=== PATIENT | male | born 1970 | race Hispanic/Latino ===

== ENCOUNTER 2020-11-30 02:00 | Inpatient (IN) | payer BC, SELFPAY ==
[2020-11-30] MEDS ORDERED: Morphine 4 MG/ML VIAL ONE (02:26)
[2020-11-30 02:43] LABS: #Monocytes 0.6 10x3/uL (0.0-1.1); #Neutrophils 9.4 10x3/uL (1.5-8.4); %Basophils 0.3 % (0.0-2.0); %Lymphocytes 8.7 % (18.0-47.0); %Monocytes 5.2 % (0.0-10.0); %Neutrophils 85.3 % (40.0-75.0); Hemoglobin 14.3 g/dL (13.5-17.5); Mean Corpuscular HGB CONC 33.3 g/dL (32.0-36.0); Mean Corpuscular Hemoglobin 28.6 pg (27.0-33.0); Mean Corpuscular Volume 85.8 fl (81.2-95.1); Mean Platelet Volume 10.7 fl (7.4-10.4); Platelet Count 223 10x3/uL (150-450); RBC Distribution Width 12.1 % (11.5-14.5)
[2020-11-30 03:08] LABS: CKMB 1.3 ng/mL (0-6.6)
[2020-11-30 03:35] LABS: SARS-CoV-2 NAA Rapid Test DETECTED (NotDetected)
[2020-11-30] MEDS ORDERED: Ondansetron PF 4 MG/2 ML Vial ONE (04:53)
[2020-11-30 05:45] LABS: Lactic Acid 2.6 mmol/L (0.5-2.2)
[2020-11-30] MEDS ORDERED: Ventolin HFA Inhaler 60 PUFF INHALER ONE (08:50)
[2020-11-30 13:10] LABS: Troponin I 0.172 ng/mL (< 0.028)
[2020-11-30 13:32] LABS: ALT (SGPT) 37 U/L (8-55); AST (SGOT) 66 U/L (5-34); Albumin 3.5 g/dL (3.5-5.0); Alkaline Phosphatase 60 U/L (40-110); Anion Gap 18 mmol/L (10-20); BUN (Urea Nitrogen) 32 mg/dL (8.4-25.7); Bilirubin, Total 0.8 mg/dL (0.2-1.2); CRP (Inflammatory) 17.95 mg/dL (= or < 0.5); Calc. Creatinine Clearance 0 mL/min (70-130); Calcium 8.6 mg/dL (7.8-10.44); Carbon Dioxide 23 mmol/L (22-29); Chloride 98 mmol/L (98-107); Globulin 4.1 g/dL (2.4-3.5); Glucose 144 mg/dL (70-105); Lactic Acid 1.9 mmol/L (0.5-2.2); Potassium 4.8 mmol/L (3.5-5.1); Protein, Total 7.6 g/dL (6.0-8.3); Sodium 134 mmol/L (136-145)
[2020-11-30 13:41] LABS: Actual Bicarbonate (HCO3a) 21.2 mEq/L (22-28); Base Excess (BEa) -3.4 mEq/L (-2.0 to +3.0); CO2 Tension 37.4 mmHg (35.0-45.0); Calcium, Ionized (arterial) 1.17 mmol/L (1.12-1.30); Carboxyhemoglobin (COHb) 0.4 gm% (0.0-3.0); Hemoglobin (Hb) 15.5 g/dL (14.0-18.0); O2 Tension (PaO2), arterial 49.3 mmHg (80.0-100.0); Potassium - ABG Lab 4.7 mmol/L (3.70-5.30); Puncture Site LRA; pH, Arterial 7.37 (7.35-7.45)
[2020-11-30] MEDS ORDERED: Thiamine 100 MG TAB PO SCH (15:30)
[2020-11-30] MEDS ORDERED: Zinc Sulfate 220 MG CAP PO SCH (15:30)
[2020-11-30] MEDS ORDERED: Famotidine/PF 20 mg/2ml Vial SLOW IVP SCH (15:30)
[2020-11-30] MEDS ORDERED: Cholecalciferol (Vitamin D3) 400 UNITS TAB PO SCH (15:30)
[2020-11-30] MEDS ORDERED: Dexamethasone 4 mg/ml Vial SLOW IVP SCH (15:30)
[2020-11-30] MEDS ORDERED: Ascorbic Acid 500 mg Chewable Tablet PO SCH (15:30)
[2020-11-30] MEDS ORDERED: FLU VACC QS2020-21(6MOS UP)/PF 60 MCG/0.5 ML SYRINGE IM ONE (15:45)
[2020-11-30] MEDS ORDERED: Azithromycin 500 MG in Sodium Chloride 0.9% 250 ML 250 ML IVPB SCH (16:00)
[2020-11-30 16:01] LABS: Actual Bicarbonate (HCO3a) 21.4 mEq/L (22-28); Base Excess (BEa) -3.1 mEq/L (-2.0 to +3.0); CO2 Tension 36.7 mmHg (35.0-45.0); Carboxyhemoglobin (COHb) 0.5 gm% (0.0-3.0); Hemoglobin (Hb) 14.6 g/dL (14.0-18.0); O2 Tension (PaO2), arterial 74.2 mmHg (80.0-100.0); Potassium - ABG Lab 4.6 mmol/L (3.70-5.30); Puncture Site RRA; pH, Arterial 7.38 (7.35-7.45)
[2020-11-30] MEDS: cefTRIAXone\\ROCEPHIN 1 GM in Sodium Chloride 0.9% 100 ML IVPB SCH (16:36)
[2020-11-30] MEDS: Enoxaparin Sodium 120 MG/0.8 ML SYRINGE SC SCH (16:36)
[2020-11-30 16:37] LABS: Lactic Acid 1.7 mmol/L (0.5-2.2)
[2020-11-30] MEDS: Azithromycin 500 MG in Sodium Chloride 0.9% 250 ML 250 ML IVPB SCH (18:35)
[2020-11-30] MEDS: Mometasone/Formoterol 200/5 60 PUFF INH SCH (19:40)
[2020-11-30 20:19] LABS: Lactic Acid 1.6 mmol/L (0.5-2.2)
[2020-11-30 20:29] LABS: Troponin I 0.124 ng/mL (< 0.028)
[2020-11-30] MEDS: Famotidine/PF 20 mg/2ml Vial SLOW IVP SCH (21:45)
[2020-11-30] MEDS ORDERED: Acetaminophen 325 MG TAB ONE (22:39)
[2020-11-30] MEDS: Acetaminophen 325 MG TAB PO PRN (22:49)
[2020-12-01 00:37] LABS: Troponin I 0.106 ng/mL (< 0.028)
[2020-12-01 02:43] LABS: Bilirubin Neg (Negative); Blood, Urine 10 (Negative); Clarity Cloudy (Clear); Glucose, Urine (Dipstick) Normal (Negative); Ketone, Urine Negative (Negative); Leukocyte 25 (Negative); Nitrite Negative (Negative); Protein, Urine (Dipstick) 100 mg/dl (Neg-Trace); Specific Gravity, Urine 1.025 (1.002-1.036)
[2020-12-01 02:56] LABS: Bacteria/HPF 2+ HPF (None Seen); RBC/HPF 0-3 HPF (0-3); Renal Epithelial 0-3 HPF (None Seen); Squamous Epithelial 0-3 HPF (0-3); WBC/HPF 0-3 HPF (0-3)
[2020-12-01] MEDS: Enoxaparin Sodium 120 MG/0.8 ML SYRINGE SC SCH (04:57)
[2020-12-01 07:08] LABS: #Monocytes 0.7 10x3/uL (0.0-1.1); #Neutrophils 16.4 10x3/uL (1.5-8.4); %Basophils 0.2 % (0.0-2.0); %Lymphocytes 5.4 % (18.0-47.0); %Monocytes 3.7 % (0.0-10.0); %Neutrophils 89.8 % (40.0-75.0); Hemoglobin 13.1 g/dL (13.5-17.5); Mean Corpuscular HGB CONC 33.8 g/dL (32.0-36.0); Mean Corpuscular Hemoglobin 28.9 pg (27.0-33.0); Mean Corpuscular Volume 85.7 fl (81.2-95.1); Mean Platelet Volume 10.9 fl (7.4-10.4); Platelet Count 233 10x3/uL (150-450); RBC Distribution Width 12.1 % (11.5-14.5); Red Blood Cell (RBC) Count 4.53 10x6/uL (4.32-5.72); White Blood Cell (WBC) Count 18.3 10x3/uL (3.5-10.5)
[2020-12-01 07:22] LABS: Troponin I 0.073 ng/mL (< 0.028)
[2020-12-01] MEDS: Cholecalciferol (Vitamin D3) 400 UNITS TAB PO SCH ×2 (08:43→10:28)
[2020-12-01] MEDS: Famotidine/PF 20 mg/2ml Vial SLOW IVP SCH ×2 (08:43→21:50)
[2020-12-01] MEDS: Ascorbic Acid 500 mg Chewable Tablet PO SCH ×2 (08:43→10:27)
[2020-12-01] MEDS: Zinc Sulfate 220 MG CAP PO SCH ×2 (08:44→10:29)
[2020-12-01] MEDS: Thiamine 100 MG TAB PO SCH ×2 (08:44→10:28)
[2020-12-01] MEDS: Mometasone/Formoterol 200/5 60 PUFF INH SCH ×2 (08:52→19:27)
[2020-12-01] MEDS ORDERED: Dexamethasone 6 MG in Sodium Chloride 0.9% 50 ML IVPB SCH (12:00)
[2020-12-01] MEDS: Dexamethasone 6 MG, Admixture Fee 1 EACH in Sodium Chloride 0.9% 50 ML IVPB SCH (12:42)
[2020-12-01] MEDS: cefTRIAXone\\ROCEPHIN 1 GM in Sodium Chloride 0.9% 100 ML IVPB SCH (16:23)
[2020-12-01] MEDS: Azithromycin 500 MG in Sodium Chloride 0.9% 250 ML 250 ML IVPB SCH (18:00)
[2020-12-01] MEDS: Acetaminophen 325 MG TAB PO PRN (21:48)
[2020-12-02] MEDS: Enoxaparin Sodium 120 MG/0.8 ML SYRINGE SC SCH (08:52)
[2020-12-02] MEDS: Thiamine 100 MG TAB PO SCH (08:52)
[2020-12-02] MEDS: Cholecalciferol (Vitamin D3) 400 UNITS TAB PO SCH (08:52)
[2020-12-02] MEDS: Zinc Sulfate 220 MG CAP PO SCH (08:52)
[2020-12-02] MEDS: Famotidine/PF 20 mg/2ml Vial SLOW IVP SCH (08:52)
[2020-12-02] MEDS: Ascorbic Acid 500 mg Chewable Tablet PO SCH (08:52)
[2020-12-02] MEDS: Mometasone/Formoterol 200/5 60 PUFF INH SCH ×2 (09:39→21:15)
[2020-12-02] MEDS ORDERED: Ventolin HFA Inhaler 60 PUFF INHALER INH PRN (10:14)
[2020-12-02] MEDS: Dexamethasone 6 MG, Admixture Fee 1 EACH in Sodium Chloride 0.9% 50 ML IVPB SCH (12:33)
[2020-12-02] MEDS: cefTRIAXone\\ROCEPHIN 1 GM in Sodium Chloride 0.9% 100 ML IVPB SCH (15:04)
[2020-12-02] MEDS: Azithromycin 500 MG in Sodium Chloride 0.9% 250 ML 250 ML IVPB SCH (16:26)
[2020-12-02] MEDS: Acetaminophen 325 MG TAB PO PRN (21:27)
[2020-12-03] MEDS: Famotidine/PF 20 mg/2ml Vial SLOW IVP SCH ×3 (02:11→22:02)
[2020-12-03 05:28] LABS: Hemoglobin 13.6 g/dL (13.5-17.5); Mean Corpuscular HGB CONC 32.9 g/dL (32.0-36.0); Mean Corpuscular Hemoglobin 28.2 pg (27.0-33.0); Mean Corpuscular Volume 85.9 fl (81.2-95.1); Mean Platelet Volume 11.1 fl (7.4-10.4); Platelet Count 248 10x3/uL (150-450); RBC Distribution Width 12.1 % (11.5-14.5); Red Blood Cell (RBC) Count 4.82 10x6/uL (4.32-5.72); White Blood Cell (WBC) Count 9.9 10x3/uL (3.5-10.5)
[2020-12-03 05:29] LABS: Anion Gap 15 mmol/L (10-20); BUN (Urea Nitrogen) 57 mg/dL (8.4-25.7); CRP (Inflammatory) 3.46 mg/dL (= or < 0.5); Calc. Creatinine Clearance 134 mL/min (70-130); Calcium 8.5 mg/dL (7.8-10.44); Carbon Dioxide 25 mmol/L (22-29); Chloride 107 mmol/L (98-107); Glucose 120 mg/dL (70-105); Potassium 5.4 mmol/L (3.5-5.1); Sodium 142 mmol/L (136-145)
[2020-12-03 06:49] LABS: MDiff Complete? YES
[2020-12-03 06:54] LABS: Band 13 % (5-11); Lymphocytes 3 % (21-51); Metamyelocyte 1 % (0-0); Monocytes 9 % (0-10); Neutrophil 74 % (42-75)
[2020-12-03 06:56] LABS: Platelet Morphology Comment Appears Adequate; RBC Morphology Normal
[2020-12-03] MEDS ORDERED: Calcium Gluconate 4.6 MEQ in Sodium Chloride 0.9% 100 ML IVPB SCH (07:15)
[2020-12-03] MEDS: Mometasone/Formoterol 200/5 60 PUFF INH SCH ×2 (07:39→21:39)
[2020-12-03] MEDS: Hydrochlorothiazide 25 MG TAB PO SCH (09:13)
[2020-12-03] MEDS: Enoxaparin Sodium 120 MG/0.8 ML SYRINGE SC SCH ×2 (09:13→22:02)
[2020-12-03] MEDS: Cholecalciferol (Vitamin D3) 400 UNITS TAB PO SCH (09:14)
[2020-12-03] MEDS: Zinc Sulfate 220 MG CAP PO SCH (09:14)
[2020-12-03] MEDS: Thiamine 100 MG TAB PO SCH (09:14)
[2020-12-03] MEDS: Ascorbic Acid 500 mg Chewable Tablet PO SCH (09:14)
[2020-12-03] MEDS: Dexamethasone 6 MG, Admixture Fee 1 EACH in Sodium Chloride 0.9% 50 ML IVPB SCH (14:07)
[2020-12-03] MEDS: cefTRIAXone\\ROCEPHIN 1 GM in Sodium Chloride 0.9% 100 ML IVPB SCH (15:53)
[2020-12-03] MEDS: Azithromycin 500 MG in Sodium Chloride 0.9% 250 ML 250 ML IVPB SCH (17:00)
[2020-12-04 04:56] LABS: #Eosinphils 0.1 10x3/uL (0.0-0.5); #Monocytes 0.5 10x3/uL (0.0-1.1); #Neutrophils 10.3 10x3/uL (1.5-8.4); %Basophils 0.2 % (0.0-2.0); %Eosinophils 0.7 % (0.0-6.0); %Lymphocytes 8.2 % (18.0-47.0); %Monocytes 3.8 % (0.0-10.0); %Neutrophils 85.8 % (40.0-75.0); Hemoglobin 13.7 g/dL (13.5-17.5); Mean Corpuscular Hemoglobin 28.4 pg (27.0-33.0); Mean Corpuscular Volume 86.1 fl (81.2-95.1); Platelet Count 214 10x3/uL (150-450); RBC Distribution Width 11.9 % (11.5-14.5); Red Blood Cell (RBC) Count 4.82 10x6/uL (4.32-5.72)
[2020-12-04 05:07] LABS: Anion Gap 16 mmol/L (10-20); BUN (Urea Nitrogen) 42 mg/dL (8.4-25.7); CRP (Inflammatory) 3.33 mg/dL (= or < 0.5); Calc. Creatinine Clearance 165 mL/min (70-130); Calcium 8.6 mg/dL (7.8-10.44); Carbon Dioxide 27 mmol/L (22-29); Chloride 104 mmol/L (98-107); Glucose 94 mg/dL (70-105); Potassium 4.9 mmol/L (3.5-5.1); Sodium 142 mmol/L (136-145)
[2020-12-04] MEDS: Mometasone/Formoterol 200/5 60 PUFF INH SCH ×2 (08:21→19:57)
[2020-12-04] MEDS: Hydrochlorothiazide 25 MG TAB PO SCH (12:43)
[2020-12-04] MEDS: Zinc Sulfate 220 MG CAP PO SCH (12:43)
[2020-12-04] MEDS: Ascorbic Acid 500 mg Chewable Tablet PO SCH (12:43)
[2020-12-04] MEDS: Cholecalciferol (Vitamin D3) 400 UNITS TAB PO SCH (12:43)
[2020-12-04] MEDS ORDERED: Sodium Chloride 0.9% 50 ML ONE (12:45)
[2020-12-04] MEDS ORDERED: Dexamethasone 20 MG/5 ML VIAL ONE (12:45)
[2020-12-04] MEDS: Thiamine 100 MG TAB PO SCH (12:47)
[2020-12-04] MEDS: Enoxaparin Sodium 120 MG/0.8 ML SYRINGE SC SCH ×2 (12:47→21:34)
[2020-12-04] MEDS: Dexamethasone 6 MG, Admixture Fee 1 EACH in Sodium Chloride 0.9% 50 ML IVPB SCH (12:47)
[2020-12-04] MEDS: Famotidine/PF 20 mg/2ml Vial SLOW IVP SCH ×2 (13:19→21:35)
[2020-12-04] MEDS: cefTRIAXone\\ROCEPHIN 1 GM in Sodium Chloride 0.9% 100 ML IVPB SCH (16:36)
[2020-12-04] MEDS: Azithromycin 500 MG in Sodium Chloride 0.9% 250 ML 250 ML IVPB SCH (18:40)
[2020-12-05 04:37] LABS: #Eosinphils 0.4 10x3/uL (0.0-0.5); #Monocytes 0.3 10x3/uL (0.0-1.1); #Neutrophils 9.4 10x3/uL (1.5-8.4); %Basophils 0.2 % (0.0-2.0); %Eosinophils 3.3 % (0.0-6.0); %Lymphocytes 6.7 % (18.0-47.0); %Monocytes 3.1 % (0.0-10.0); %Neutrophils 85.4 % (40.0-75.0); Hemoglobin 14.6 g/dL (13.5-17.5); Mean Corpuscular HGB CONC 33.1 g/dL (32.0-36.0); Mean Corpuscular Hemoglobin 28.4 pg (27.0-33.0); Mean Corpuscular Volume 85.8 fl (81.2-95.1); Mean Platelet Volume 10.6 fl (7.4-10.4); Platelet Count 194 10x3/uL (150-450); RBC Distribution Width 11.9 % (11.5-14.5); Red Blood Cell (RBC) Count 5.14 10x6/uL (4.32-5.72); White Blood Cell (WBC) Count 10.9 10x3/uL (3.5-10.5)
[2020-12-05 05:01] LABS: Anion Gap 16 mmol/L (10-20); BUN (Urea Nitrogen) 35 mg/dL (8.4-25.7); Calc. Creatinine Clearance 185 mL/min (70-130); Calcium 8.9 mg/dL (7.8-10.44); Carbon Dioxide 28 mmol/L (22-29); Chloride 103 mmol/L (98-107); Glucose 81 mg/dL (70-105); Sodium 142 mmol/L (136-145)
[2020-12-05] MEDS: Mometasone/Formoterol 200/5 60 PUFF INH SCH ×2 (07:54→20:20)
[2020-12-05] MEDS: Zinc Sulfate 220 MG CAP PO SCH (09:30)
[2020-12-05] MEDS: Thiamine 100 MG TAB PO SCH (09:30)
[2020-12-05] MEDS: Dexamethasone 6 MG, Admixture Fee 1 EACH in Sodium Chloride 0.9% 50 ML IVPB SCH (09:30)
[2020-12-05] MEDS: Enoxaparin Sodium 120 MG/0.8 ML SYRINGE SC SCH ×2 (09:30→22:28)
[2020-12-05] MEDS: Hydrochlorothiazide 25 MG TAB PO SCH ×2 (09:30→22:28)
[2020-12-05] MEDS: Ascorbic Acid 500 mg Chewable Tablet PO SCH (09:30)
[2020-12-05] MEDS: Famotidine/PF 20 mg/2ml Vial SLOW IVP SCH ×2 (09:30→22:28)
[2020-12-05] MEDS: Cholecalciferol (Vitamin D3) 400 UNITS TAB PO SCH (09:30)
[2020-12-05] MEDS: cefTRIAXone\\ROCEPHIN 1 GM in Sodium Chloride 0.9% 100 ML IVPB SCH (16:10)
[2020-12-05] MEDS: Azithromycin 500 MG in Sodium Chloride 0.9% 250 ML 250 ML IVPB SCH (18:16)
[2020-12-06 05:28] LABS: #Eosinphils 0.7 10x3/uL (0.0-0.5); #Monocytes 0.3 10x3/uL (0.0-1.1); %Basophils 0.3 % (0.0-2.0); %Eosinophils 5.8 % (0.0-6.0); %Lymphocytes 4.6 % (18.0-47.0); %Monocytes 2.9 % (0.0-10.0); %Neutrophils 84.5 % (40.0-75.0); Hemoglobin 14.5 g/dL (13.5-17.5); Mean Corpuscular HGB CONC 33.2 g/dL (32.0-36.0); Mean Corpuscular Hemoglobin 28.3 pg (27.0-33.0); Mean Corpuscular Volume 85.2 fl (81.2-95.1); Mean Platelet Volume 11.5 fl (7.4-10.4); Platelet Count 209 10x3/uL (150-450); RBC Distribution Width 11.9 % (11.5-14.5); Red Blood Cell (RBC) Count 5.13 10x6/uL (4.32-5.72); White Blood Cell (WBC) Count 11.8 10x3/uL (3.5-10.5)
[2020-12-06 05:39] LABS: Anion Gap 15 mmol/L (10-20); BUN (Urea Nitrogen) 31 mg/dL (8.4-25.7); Calc. Creatinine Clearance 196 mL/min (70-130); Calcium 8.7 mg/dL (7.8-10.44); Carbon Dioxide 24 mmol/L (22-29); Chloride 103 mmol/L (98-107); Glucose 104 mg/dL (70-105); Potassium 4.2 mmol/L (3.5-5.1); Sodium 138 mmol/L (136-145)
[2020-12-06] MEDS: Mometasone/Formoterol 200/5 60 PUFF INH SCH ×2 (08:43→18:40)
[2020-12-06] MEDS: Ascorbic Acid 500 mg Chewable Tablet PO SCH (08:59)
[2020-12-06] MEDS: Famotidine/PF 20 mg/2ml Vial SLOW IVP SCH ×2 (08:59→19:53)
[2020-12-06] MEDS: Cholecalciferol (Vitamin D3) 400 UNITS TAB PO SCH (09:00)
[2020-12-06] MEDS: Thiamine 100 MG TAB PO SCH (09:00)
[2020-12-06] MEDS: Zinc Sulfate 220 MG CAP PO SCH (09:01)
[2020-12-06] MEDS: Enoxaparin Sodium 120 MG/0.8 ML SYRINGE SC SCH ×2 (09:01→19:53)
[2020-12-06] MEDS: Acetaminophen 325 MG TAB PO PRN (10:43)
[2020-12-06] MEDS ORDERED: Sodium Chloride 0.9% 50 ML ONE (11:47)
[2020-12-06] MEDS ORDERED: Dexamethasone 20 MG/5 ML VIAL ONE (11:47)
[2020-12-06] MEDS: Dexamethasone 6 MG, Admixture Fee 1 EACH in Sodium Chloride 0.9% 50 ML IVPB SCH (11:52)
[2020-12-06] MEDS: cefTRIAXone\\ROCEPHIN 1 GM in Sodium Chloride 0.9% 100 ML IVPB SCH (15:39)
[2020-12-06] MEDS ORDERED: Furosemide 100 MG/10 ML VIAL SLOW IVP SCH (15:45)
[2020-12-06] MEDS: Azithromycin 500 MG in Sodium Chloride 0.9% 250 ML 250 ML IVPB SCH (17:27)
[2020-12-07 04:24] LABS: #Eosinphils 0.2 10x3/uL (0.0-0.5); #Monocytes 0.5 10x3/uL (0.0-1.1); #Neutrophils 12.1 10x3/uL (1.5-8.4); %Basophils 0.1 % (0.0-2.0); %Eosinophils 1.3 % (0.0-6.0); %Lymphocytes 4.6 % (18.0-47.0); %Monocytes 3.5 % (0.0-10.0); %Neutrophils 89.5 % (40.0-75.0); Hemoglobin 14.2 g/dL (13.5-17.5); Mean Corpuscular HGB CONC 34.1 g/dL (32.0-36.0); Mean Corpuscular Volume 85.1 fl (81.2-95.1); Mean Platelet Volume 11.7 fl (7.4-10.4); Platelet Count 209 10x3/uL (150-450); RBC Distribution Width 11.7 % (11.5-14.5); Red Blood Cell (RBC) Count 4.89 10x6/uL (4.32-5.72); White Blood Cell (WBC) Count 13.5 10x3/uL (3.5-10.5)
[2020-12-07 04:46] LABS: Anion Gap 14 mmol/L (10-20); BUN (Urea Nitrogen) 36 mg/dL (8.4-25.7); Calc. Creatinine Clearance 183 mL/min (70-130); Calcium 8.9 mg/dL (7.8-10.44); Carbon Dioxide 25 mmol/L (22-29); Chloride 102 mmol/L (98-107); Glucose 109 mg/dL (70-105); Potassium 4.3 mmol/L (3.5-5.1); Sodium 137 mmol/L (136-145)
[2020-12-07] MEDS: Mometasone/Formoterol 200/5 60 PUFF INH SCH ×2 (08:20→19:36)
[2020-12-07] MEDS: Hydrochlorothiazide 25 MG TAB PO SCH (08:21)
[2020-12-07] MEDS: Ascorbic Acid 500 mg Chewable Tablet PO SCH (08:21)
[2020-12-07] MEDS: Thiamine 100 MG TAB PO SCH (08:21)
[2020-12-07] MEDS: Zinc Sulfate 220 MG CAP PO SCH (08:21)
[2020-12-07] MEDS: Cholecalciferol (Vitamin D3) 400 UNITS TAB PO SCH (08:21)
[2020-12-07] MEDS: Enoxaparin Sodium 120 MG/0.8 ML SYRINGE SC SCH ×2 (08:21→23:01)
[2020-12-07] MEDS: Famotidine/PF 20 mg/2ml Vial SLOW IVP SCH ×2 (08:22→23:02)
[2020-12-07] MEDS: Dexamethasone 6 MG, Admixture Fee 1 EACH in Sodium Chloride 0.9% 50 ML IVPB SCH (12:41)
[2020-12-07] MEDS ORDERED: Azithromycin 500 MG VIAL ONE (17:24)
[2020-12-07] MEDS: cefTRIAXone\\ROCEPHIN 1 GM in Sodium Chloride 0.9% 100 ML IVPB SCH (17:38)
[2020-12-07] MEDS: Azithromycin 500 MG in Sodium Chloride 0.9% 250 ML 250 ML IVPB SCH (19:16)
[2020-12-07] MEDS: Acetaminophen 325 MG TAB PO PRN (23:01)
[2020-12-08] MEDS: Mometasone/Formoterol 200/5 60 PUFF INH SCH ×2 (06:55→19:41)
[2020-12-08] MEDS: Ascorbic Acid 500 mg Chewable Tablet PO SCH (08:21)
[2020-12-08] MEDS: Thiamine 100 MG TAB PO SCH (08:21)
[2020-12-08] MEDS: Zinc Sulfate 220 MG CAP PO SCH (08:21)
[2020-12-08] MEDS: Cholecalciferol (Vitamin D3) 400 UNITS TAB PO SCH (08:21)
[2020-12-08] MEDS: Enoxaparin Sodium 120 MG/0.8 ML SYRINGE SC SCH ×2 (08:22→20:16)
[2020-12-08] MEDS: Famotidine/PF 20 mg/2ml Vial SLOW IVP SCH ×2 (08:22→20:16)
[2020-12-08] MEDS ORDERED: Dexamethasone 20 MG/5 ML VIAL ONE (12:51)
[2020-12-08] MEDS ORDERED: Sodium Chloride 0.9% 50 ML ONE (12:52)
[2020-12-08] MEDS: Hydrochlorothiazide 25 MG TAB PO SCH (12:59)
[2020-12-08] MEDS: Dexamethasone 6 MG, Admixture Fee 1 EACH in Sodium Chloride 0.9% 50 ML IVPB SCH (17:19)
[2020-12-08] MEDS: cefTRIAXone\\ROCEPHIN 1 GM in Sodium Chloride 0.9% 100 ML IVPB SCH (17:44)
[2020-12-08] MEDS: Acetaminophen 325 MG TAB PO PRN (20:16)
[2020-12-09] MEDS: Mometasone/Formoterol 200/5 60 PUFF INH SCH ×2 (07:34→19:20)
[2020-12-09 07:37] LABS: Hemoglobin 14.1 g/dL (13.5-17.5); Mean Corpuscular HGB CONC 33.7 g/dL (32.0-36.0); Mean Corpuscular Hemoglobin 29.1 pg (27.0-33.0); Mean Corpuscular Volume 86.2 fl (81.2-95.1); Mean Platelet Volume 11.4 fl (7.4-10.4); Platelet Count 316 10x3/uL (150-450); RBC Distribution Width 11.8 % (11.5-14.5); Red Blood Cell (RBC) Count 4.85 10x6/uL (4.32-5.72); White Blood Cell (WBC) Count 13.1 10x3/uL (3.5-10.5)
[2020-12-09 07:55] LABS: Anion Gap 16 mmol/L (10-20); BUN (Urea Nitrogen) 31 mg/dL (8.4-25.7); Calc. Creatinine Clearance 177 mL/min (70-130); Carbon Dioxide 24 mmol/L (22-29); Chloride 103 mmol/L (98-107); Glucose 74 mg/dL (70-105); Potassium 4.4 mmol/L (3.5-5.1); Sodium 139 mmol/L (136-145)
[2020-12-09] MEDS: Enoxaparin Sodium 120 MG/0.8 ML SYRINGE SC SCH ×2 (09:17→20:51)
[2020-12-09] MEDS: Famotidine/PF 20 mg/2ml Vial SLOW IVP SCH ×2 (09:18→20:51)
[2020-12-09] MEDS: Zinc Sulfate 220 MG CAP PO SCH (09:19)
[2020-12-09] MEDS: Cholecalciferol (Vitamin D3) 400 UNITS TAB PO SCH (09:19)
[2020-12-09] MEDS: Ascorbic Acid 500 mg Chewable Tablet PO SCH (09:19)
[2020-12-09] MEDS: Thiamine 100 MG TAB PO SCH (09:19)
[2020-12-09] MEDS: Hydrochlorothiazide 25 MG TAB PO SCH (09:20)
[2020-12-09] MEDS: Dexamethasone 6 MG, Admixture Fee 1 EACH in Sodium Chloride 0.9% 50 ML IVPB SCH (11:52)
[2020-12-09] MEDS: cefTRIAXone\\ROCEPHIN 1 GM in Sodium Chloride 0.9% 100 ML IVPB SCH (16:13)
[2020-12-09] MEDS: Acetaminophen 325 MG TAB PO PRN ×2 (16:58→20:51)
[2020-12-09] MEDS: Azithromycin 500 MG in Sodium Chloride 0.9% 250 ML 250 ML IVPB SCH ×2 (17:42→18:00)
[2020-12-10] MEDS: Mometasone/Formoterol 200/5 60 PUFF INH SCH ×2 (07:29→19:33)
[2020-12-10] MEDS ORDERED: Furosemide 100 MG/10 ML VIAL SLOW IVP SCH (09:15)
[2020-12-10] MEDS: Zinc Sulfate 220 MG CAP PO SCH (10:03)
[2020-12-10] MEDS: Enoxaparin Sodium 120 MG/0.8 ML SYRINGE SC SCH ×2 (10:03→23:08)
[2020-12-10] MEDS: Thiamine 100 MG TAB PO SCH (10:04)
[2020-12-10] MEDS: Ascorbic Acid 500 mg Chewable Tablet PO SCH (10:04)
[2020-12-10] MEDS: Famotidine/PF 20 mg/2ml Vial SLOW IVP SCH ×2 (10:04→23:08)
[2020-12-10] MEDS: Cholecalciferol (Vitamin D3) 400 UNITS TAB PO SCH (10:04)
[2020-12-10] MEDS: Lorazepam 2 MG/ML VIAL SLOW IVP PRN (11:20)
[2020-12-10] MEDS ORDERED: Sodium Chloride 0.9% 50 ML ONE (12:21)
[2020-12-10] MEDS ORDERED: Dexamethasone 20 MG/5 ML VIAL ONE (12:21)
[2020-12-10] MEDS: Dexamethasone 6 MG, Admixture Fee 1 EACH in Sodium Chloride 0.9% 50 ML IVPB SCH (12:27)
[2020-12-10] MEDS: Furosemide 40 MG/4 ML VIAL SLOW IVP SCH (14:29)
[2020-12-10] MEDS: cefTRIAXone\\ROCEPHIN 1 GM in Sodium Chloride 0.9% 100 ML IVPB SCH (15:20)
[2020-12-10] MEDS: Azithromycin 500 MG in Sodium Chloride 0.9% 250 ML 250 ML IVPB SCH (23:08)
[2020-12-11] MEDS: Acetaminophen 325 MG TAB PO PRN ×2 (01:16→17:26)
[2020-12-11 03:43] LABS: #Monocytes 0.4 10x3/uL (0.0-1.1); #Neutrophils 15.1 10x3/uL (1.5-8.4); %Basophils 0.2 % (0.0-2.0); %Eosinophils 0.2 % (0.0-6.0); %Lymphocytes 4.2 % (18.0-47.0); %Monocytes 2.6 % (0.0-10.0); %Neutrophils 92.3 % (40.0-75.0); Hemoglobin 14.4 g/dL (13.5-17.5); Mean Corpuscular HGB CONC 33.3 g/dL (32.0-36.0); Mean Corpuscular Hemoglobin 28.4 pg (27.0-33.0); Mean Corpuscular Volume 85.4 fl (81.2-95.1); Mean Platelet Volume 11.3 fl (7.4-10.4); Platelet Count 350 10x3/uL (150-450); RBC Distribution Width 11.9 % (11.5-14.5); Red Blood Cell (RBC) Count 5.07 10x6/uL (4.32-5.72); White Blood Cell (WBC) Count 16.3 10x3/uL (3.5-10.5)
[2020-12-11 03:54] LABS: Anion Gap 16 mmol/L (10-20); BUN (Urea Nitrogen) 32 mg/dL (8.4-25.7); CRP (Inflammatory) 13.56 mg/dL (= or < 0.5); Calc. Creatinine Clearance 181 mL/min (70-130); Calcium 9.1 mg/dL (7.8-10.44); Carbon Dioxide 25 mmol/L (22-29); Chloride 103 mmol/L (98-107); Glucose 103 mg/dL (70-105); Magnesium 2.3 mg/dL (1.6-2.6); Potassium 4.8 mmol/L (3.5-5.1); Sodium 139 mmol/L (136-145)
[2020-12-11] MEDS: Mometasone/Formoterol 200/5 60 PUFF INH SCH ×2 (08:30→18:30)
[2020-12-11] MEDS: Famotidine/PF 20 mg/2ml Vial SLOW IVP SCH ×2 (08:41→21:54)
[2020-12-11] MEDS: Zinc Sulfate 220 MG CAP PO SCH (08:41)
[2020-12-11] MEDS: Cholecalciferol (Vitamin D3) 400 UNITS TAB PO SCH (08:41)
[2020-12-11] MEDS: Ascorbic Acid 500 mg Chewable Tablet PO SCH (08:41)
[2020-12-11] MEDS: Thiamine 100 MG TAB PO SCH (08:41)
[2020-12-11] MEDS: Enoxaparin Sodium 120 MG/0.8 ML SYRINGE SC SCH ×2 (08:41→21:53)
[2020-12-11] MEDS ORDERED: Sodium Chloride 0.9% 50 ML ONE (11:30)
[2020-12-11] MEDS: Dexamethasone 20 MG/5 ML VIAL ONE ×2 (11:34→11:41)
[2020-12-11] MEDS: Dexamethasone 6 MG, Admixture Fee 1 EACH in Sodium Chloride 0.9% 50 ML IVPB SCH (11:41)
[2020-12-11] MEDS: Furosemide 40 MG/4 ML VIAL SLOW IVP SCH ×2 (13:54→19:37)
[2020-12-11] MEDS: Lorazepam 2 MG/ML VIAL SLOW IVP PRN (22:41)
[2020-12-12] MEDS ORDERED: Propofol 1,000 MG/100 ML VIAL IV ONE (00:20)
[2020-12-12 00:39] LABS: Base Excess (BEa) -2.9 mEq/L (-2.0 to +3.0); Calcium, Ionized (arterial) 1.26 mmol/L (1.12-1.30); Carboxyhemoglobin (COHb) 0.7 gm% (0.0-3.0); Hemoglobin (Hb) 16.3 g/dL (14.0-18.0); O2 Tension (PaO2), arterial 59.6 mmHg (80.0-100.0); Potassium - ABG Lab 3.9 mmol/L (3.70-5.30); Puncture Site RBA; pH, Arterial 7.24 (7.35-7.45)
[2020-12-12] MEDS ORDERED: Labetalol HCl 100 MG/20 ML VIAL ONE (01:02)
[2020-12-12] MEDS ORDERED: Rocuronium Bromide 10 MG/ML (10ML VIAL) ONE (01:11)
[2020-12-12] MEDS ORDERED: Fentanyl CADD 100 ML IVPB SCH (01:45)
[2020-12-12] MEDS ORDERED: Fentanyl CADD 100 ML ONE (01:52)
[2020-12-12] MEDS ORDERED: Propofol BOLUS 1,000 MG/100 ML VIAL IV PRN ×2 (02:00→08:15)
[2020-12-12] MEDS ORDERED: Rocuronium Bromide 10 MG/ML (10ML VIAL) IVP SCH (02:00)
[2020-12-12] MEDS: Propofol 1,000 MG/100 ML VIAL IV PRN ×7 (02:15→23:00)
[2020-12-12 03:34] LABS: Actual Bicarbonate (HCO3a) 28.1 mEq/L (22-28); Base Excess (BEa) -0.3 mEq/L (-2.0 to +3.0); CO2 Tension 61.7 mmHg (35.0-45.0); Calcium, Ionized (arterial) 1.24 mmol/L (1.12-1.30); Carboxyhemoglobin (COHb) 0.9 gm% (0.0-3.0); Hemoglobin (Hb) 15.5 g/dL (14.0-18.0); O2 Tension (PaO2), arterial 49.7 mmHg (80.0-100.0); Potassium - ABG Lab 4.6 mmol/L (3.70-5.30); Puncture Site RBA; pH, Arterial 7.28 (7.35-7.45)
[2020-12-12 07:01] LABS: Anion Gap 17 mmol/L (10-20)
[2020-12-12 07:05] LABS: Hemoglobin 13.9 g/dL (13.5-17.5); Mean Corpuscular HGB CONC 31.9 g/dL (32.0-36.0); Mean Corpuscular Hemoglobin 28.1 pg (27.0-33.0); Mean Corpuscular Volume 88.1 fl (81.2-95.1); Mean Platelet Volume 11.6 fl (7.4-10.4); Platelet Count 368 10x3/uL (150-450); RBC Distribution Width 12.1 % (11.5-14.5); Red Blood Cell (RBC) Count 4.95 10x6/uL (4.32-5.72); White Blood Cell (WBC) Count 23.6 10x3/uL (3.5-10.5)
[2020-12-12 07:16] LABS: BUN (Urea Nitrogen) 47 mg/dL (8.4-25.7); CRP (Inflammatory) 11.01 mg/dL (= or < 0.5); Calc. Creatinine Clearance 99 mL/min (70-130); Calcium 9.5 mg/dL (7.8-10.44); Carbon Dioxide 27 mmol/L (22-29); Chloride 102 mmol/L (98-107); Glucose 95 mg/dL (70-105); Potassium 4.9 mmol/L (3.5-5.1); Sodium 141 mmol/L (136-145)
[2020-12-12] MEDS: Mometasone/Formoterol 200/5 60 PUFF INH SCH ×2 (07:33→19:23)
[2020-12-12 07:35] LABS: Band 6 % (5-11); Lymphocytes 4 % (21-51); Monocytes 5 % (0-10); Neutrophil 83 % (42-75); Reactive Lymphocytes 1 % (0-10)
[2020-12-12 07:37] LABS: Large Platelets SLIGHT; MDiff Complete? YES; Manual Diff?? YES; Platelet Morphology Comment Appears Adequate; RBC Morphology Normal
[2020-12-12] MEDS ORDERED: Ventilator Sedation Protocol 1 EACH FS PRN (07:57)
[2020-12-12] MEDS: Cholecalciferol (Vitamin D3) 400 UNITS TAB PO SCH ×2 (07:58→15:20)
[2020-12-12] MEDS: Zinc Sulfate 220 MG CAP PO SCH ×2 (07:58→15:20)
[2020-12-12] MEDS: Famotidine/PF 20 mg/2ml Vial SLOW IVP SCH (07:58)
[2020-12-12] MEDS: Thiamine 100 MG TAB PO SCH ×2 (07:58→15:20)
[2020-12-12] MEDS: Ascorbic Acid 500 mg Chewable Tablet PO SCH ×2 (07:58→15:19)
[2020-12-12] MEDS: Enoxaparin Sodium 120 MG/0.8 ML SYRINGE SC SCH ×2 (07:58→20:46)
[2020-12-12] MEDS ORDERED: Furosemide 20 MG/2 ML VIAL ONE (08:06)
[2020-12-12] MEDS: Midazolam HCl 100 MG in Premix Bag 1 BAG IVPB PRN ×2 (08:10→16:10)
[2020-12-12] MEDS: Furosemide 40 MG/4 ML VIAL SLOW IVP SCH ×2 (08:10→12:16)
[2020-12-12] MEDS ORDERED: DISCONTINUE PREVIOUS NARCOTIC PAIN MEDICATIONS AND BENZODIAZEPINES FS SCH (08:15)
[2020-12-12] MEDS ORDERED: Lorazepam 2 MG/ML VIAL SLOW IVP PRN (08:15)
[2020-12-12] MEDS ORDERED: Morphine 2 MG/ML VIAL SLOW IVP PRN (08:15)
[2020-12-12] MEDS ORDERED: Fentanyl BOLUS 250 ML IVPB PRN (08:15)
[2020-12-12] MEDS: Vecuronium Bromide 50 MG in Sodium Chloride 0.9% 250 ML 250 ML IV SCH ×2 (08:20→15:45)
[2020-12-12] MEDS ORDERED: Norepinephrine 8 MG/0.9% NS 250 ML IVPB SCH (10:15)
[2020-12-12] MEDS: Dexamethasone 6 MG, Admixture Fee 1 EACH in Sodium Chloride 0.9% 50 ML IVPB SCH (12:15)
[2020-12-12 12:51] LABS: Actual Bicarbonate (HCO3a) 31.8 mEq/L (22-28); Base Excess (BEa) -5.5 mEq/L (-2.0 to +3.0); CO2 Tension 152.3 mmHg (35.0-45.0); Calcium, Ionized (arterial) 1.36 mmol/L (1.12-1.30); Hemoglobin (Hb) 15.9 g/dL (14.0-18.0); O2 Tension (PaO2), arterial 98.8 mmHg (80.0-100.0); Potassium - ABG Lab 5.1 mmol/L (3.70-5.30); Puncture Site LRA; pH, Arterial 6.94 (7.35-7.45)
[2020-12-12 15:50] LABS: Actual Bicarbonate (HCO3a) 32.1 mEq/L (22-28); Base Excess (BEa) -3.5 mEq/L (-2.0 to +3.0); Calcium, Ionized (arterial) 1.26 mmol/L (1.12-1.30); Carboxyhemoglobin (COHb) 0.7 gm% (0.0-3.0); Hemoglobin (Hb) 15.4 g/dL (14.0-18.0); O2 Tension (PaO2), arterial 98.4 mmHg (80.0-100.0); Potassium - ABG Lab 5.3 mmol/L (3.70-5.30); Puncture Site LRA
[2020-12-12] MEDS: Pantoprazole 40 MG VIAL IVP SCH (20:46)
[2020-12-13] MEDS: Propofol 1,000 MG/100 ML VIAL IV PRN ×5 (02:20→14:53)
[2020-12-13] MEDS: Midazolam HCl 100 MG in Premix Bag 1 BAG IVPB PRN ×3 (03:30→22:07)
[2020-12-13 05:02] LABS: #Monocytes 0.4 10x3/uL (0.0-1.1); #Neutrophils 11.8 10x3/uL (1.5-8.4); %Basophils 0.1 % (0.0-2.0); %Eosinophils 0.1 % (0.0-6.0); %Lymphocytes 4.3 % (18.0-47.0); %Monocytes 3.4 % (0.0-10.0); %Neutrophils 91.6 % (40.0-75.0); Mean Corpuscular HGB CONC 31.7 g/dL (32.0-36.0); Mean Corpuscular Hemoglobin 28.7 pg (27.0-33.0); Mean Corpuscular Volume 90.5 fl (81.2-95.1); Mean Platelet Volume 10.9 fl (7.4-10.4); Platelet Count 287 10x3/uL (150-450); RBC Distribution Width 11.8 % (11.5-14.5); Red Blood Cell (RBC) Count 4.53 10x6/uL (4.32-5.72); White Blood Cell (WBC) Count 12.9 10x3/uL (3.5-10.5)
[2020-12-13 05:11] LABS: Anion Gap 17 mmol/L (10-20)
[2020-12-13 05:19] LABS: BUN (Urea Nitrogen) 63 mg/dL (8.4-25.7); Calc. Creatinine Clearance 63 mL/min (70-130); Calcium 8.9 mg/dL (7.8-10.44); Carbon Dioxide 27 mmol/L (22-29); Chloride 101 mmol/L (98-107); Glucose 131 mg/dL (70-105); Sodium 139 mmol/L (136-145)
[2020-12-13] MEDS: Furosemide 40 MG/4 ML VIAL SLOW IVP SCH (05:30)
[2020-12-13] MEDS: Pantoprazole 40 MG VIAL IVP SCH ×2 (07:56→21:07)
[2020-12-13] MEDS: Enoxaparin Sodium 120 MG/0.8 ML SYRINGE SC SCH ×2 (07:56→21:06)
[2020-12-13] MEDS: Thiamine 100 MG TAB PO SCH (07:57)
[2020-12-13] MEDS: Zinc Sulfate 220 MG CAP PO SCH (07:57)
[2020-12-13] MEDS: Ascorbic Acid 500 mg Chewable Tablet PO SCH (07:57)
[2020-12-13] MEDS: Cholecalciferol (Vitamin D3) 400 UNITS TAB PO SCH (07:57)
[2020-12-13 09:19] LABS: Actual Bicarbonate (HCO3a) 25.9 mEq/L (22-28); Base Excess (BEa) -3.3 mEq/L (-2.0 to +3.0); CO2 Tension 65.9 mmHg (35.0-45.0); Calcium, Ionized (arterial) 1.21 mmol/L (1.12-1.30); Carboxyhemoglobin (COHb) 0.4 gm% (0.0-3.0); Hemoglobin (Hb) 13.8 g/dL (14.0-18.0); O2 Tension (PaO2), arterial 154.3 mmHg (80.0-100.0); Potassium - ABG Lab 5.3 mmol/L (3.70-5.30); Puncture Site LBA; RapidComm Collect By TRT; pH, Arterial 7.21 (7.35-7.45)
[2020-12-13] MEDS: Mometasone/Formoterol 200/5 60 PUFF INH SCH ×2 (09:48→19:57)
[2020-12-13] MEDS ORDERED: Insulin Regular 300 UNITS/3 ML VIAL IVP SCH (10:00)
[2020-12-13] MEDS ORDERED: Dextrose 50% Abboject 50 ML SYRINGE SLOW IVP SCH (10:02)
[2020-12-13] MEDS ORDERED: Dexamethasone 20 MG/5 ML VIAL ONE ×2 (12:11→12:26)
[2020-12-13] MEDS ORDERED: Sodium Chloride 0.9% 50 ML ONE ×2 (12:11→12:26)
[2020-12-13 12:25] LABS: Bilirubin Neg (Negative); Blood, Urine 50 (Negative); Clarity Cloudy (Clear); Glucose, Urine (Dipstick) Normal (Negative); Ketone, Urine Negative (Negative); Leukocyte Negative (Negative); Nitrite Negative (Negative); Protein, Urine (Dipstick) 15 mg/dl (Neg-Trace); Urobilinogen Normal mg/dL (Less than 2)
[2020-12-13] MEDS: Dexamethasone 6 MG, Admixture Fee 1 EACH in Sodium Chloride 0.9% 50 ML IVPB SCH (12:31)
[2020-12-13 12:48] LABS: Creatinine, Urine 90.68 mg/dL (63-166)
[2020-12-13 14:37] LABS: Bacteria/HPF 1+ HPF (None Seen); Oval Fat Bodies/HPF Rare HPF (None Seen); Renal Epithelial 0-3 HPF (None Seen); Sperm/HPF 2+ HPF (None Seen); Squamous Epithelial 0-3 HPF (0-3)
[2020-12-13 14:39] LABS: Broad Cast 0-3 LPF (None Seen)
[2020-12-13 14:41] LABS: Urine Culture Reflex Yes Yes
[2020-12-13 16:03] LABS: Anion Gap 17 mmol/L (10-20); BUN (Urea Nitrogen) 71 mg/dL (8.4-25.7); Calc. Creatinine Clearance 53 mL/min (70-130); Calcium 8.8 mg/dL (7.8-10.44); Carbon Dioxide 27 mmol/L (22-29); Chloride 102 mmol/L (98-107); Glucose 98 mg/dL (70-105); Potassium 5.1 mmol/L (3.5-5.1); Sodium 141 mmol/L (136-145)
[2020-12-13] MEDS ORDERED: Fentanyl CADD 100 ML ONE (17:45)
[2020-12-13] MEDS: Fentanyl CADD 100 ML IV SCH (17:48)
[2020-12-13] MEDS: Cefepime 2 GM in Sodium Chloride 0.9% 100 ML IVPB SCH (18:42)
[2020-12-13] MEDS: Vancomycin HCl 1 GM in Sodium Chloride 0.9% 250 ML 250 ML IVPB SCH (18:42)
[2020-12-14] MEDS: Vecuronium Bromide 50 MG in Sodium Chloride 0.9% 250 ML 250 ML IV SCH (00:16)
[2020-12-14 04:33] LABS: #Monocytes 0.6 10x3/uL (0.0-1.1); #Neutrophils 9.4 10x3/uL (1.5-8.4); %Basophils 0.1 % (0.0-2.0); %Eosinophils 0.1 % (0.0-6.0); %Lymphocytes 5.5 % (18.0-47.0); %Monocytes 5.9 % (0.0-10.0); %Neutrophils 87.8 % (40.0-75.0); Hemoglobin 13.1 g/dL (13.5-17.5); Mean Corpuscular HGB CONC 32.7 g/dL (32.0-36.0); Mean Corpuscular Hemoglobin 29.3 pg (27.0-33.0); Mean Corpuscular Volume 89.7 fl (81.2-95.1); Mean Platelet Volume 11.2 fl (7.4-10.4); Platelet Count 324 10x3/uL (150-450); RBC Distribution Width 12.1 % (11.5-14.5); Red Blood Cell (RBC) Count 4.47 10x6/uL (4.32-5.72); White Blood Cell (WBC) Count 10.7 10x3/uL (3.5-10.5)
[2020-12-14 04:45] LABS: Anion Gap 12 mmol/L (10-20); BUN (Urea Nitrogen) 76 mg/dL (8.4-25.7); CRP (Inflammatory) 8.45 mg/dL (= or < 0.5); Calc. Creatinine Clearance 54 mL/min (70-130); Calcium 8.6 mg/dL (7.8-10.44); Carbon Dioxide 29 mmol/L (22-29); Chloride 103 mmol/L (98-107); Glucose 108 mg/dL (70-105); Potassium 4.4 mmol/L (3.5-5.1); Sodium 140 mmol/L (136-145)
[2020-12-14] MEDS: Cefepime 2 GM in Sodium Chloride 0.9% 100 ML IVPB SCH ×2 (06:01→17:07)
[2020-12-14] MEDS: Vancomycin HCl 1 GM in Sodium Chloride 0.9% 250 ML 250 ML IVPB SCH (06:01)
[2020-12-14 07:09] LABS: Actual Bicarbonate (HCO3a) 26.6 mEq/L (22-28); Base Excess (BEa) -1.9 mEq/L (-2.0 to +3.0); CO2 Tension 62.4 mmHg (35.0-45.0); Calcium, Ionized (arterial) 1.18 mmol/L (1.12-1.30); Carboxyhemoglobin (COHb) 0.5 gm% (0.0-3.0); Hemoglobin (Hb) 13.7 g/dL (14.0-18.0); Potassium - ABG Lab 4.3 mmol/L (3.70-5.30); Puncture Site LRA; pH, Arterial 7.25 (7.35-7.45)
[2020-12-14] MEDS: Mometasone/Formoterol 200/5 60 PUFF INH SCH ×2 (07:15→20:00)
[2020-12-14] MEDS: Propofol 1,000 MG/100 ML VIAL IV PRN (07:56)
[2020-12-14] MEDS: Cholecalciferol (Vitamin D3) 400 UNITS TAB PO SCH (07:57)
[2020-12-14] MEDS: Pantoprazole 40 MG VIAL IVP SCH ×2 (07:57→19:43)
[2020-12-14] MEDS: Sodium Chloride 0.9% 1,000 ML IV SCH ×2 (07:57→17:08)
[2020-12-14] MEDS: Ascorbic Acid 500 mg Chewable Tablet PO SCH (07:57)
[2020-12-14] MEDS: Thiamine 100 MG TAB PO SCH (07:57)
[2020-12-14] MEDS: Enoxaparin Sodium 120 MG/0.8 ML SYRINGE SC SCH ×2 (07:57→19:43)
[2020-12-14] MEDS: Zinc Sulfate 220 MG CAP PO SCH (07:57)
[2020-12-14] MEDS: Midazolam HCl 100 MG in Premix Bag 1 BAG IVPB PRN ×2 (08:28→17:32)
[2020-12-14] MEDS: Dexamethasone 6 MG, Admixture Fee 1 EACH in Sodium Chloride 0.9% 50 ML IVPB SCH (11:02)
[2020-12-14] MEDS: Fentanyl CADD 100 ML IV SCH (11:02)
[2020-12-15] MEDS: Propofol 1,000 MG/100 ML VIAL IV PRN ×5 (02:47→21:30)
[2020-12-15 03:54] LABS: #Eosinphils 0.1 10x3/uL (0.0-0.5); #Monocytes 0.7 10x3/uL (0.0-1.1); #Neutrophils 9.9 10x3/uL (1.5-8.4); %Basophils 0.1 % (0.0-2.0); %Eosinophils 0.8 % (0.0-6.0); %Lymphocytes 5.4 % (18.0-47.0); %Monocytes 6.3 % (0.0-10.0); %Neutrophils 86.8 % (40.0-75.0); Hemoglobin 11.5 g/dL (13.5-17.5); Mean Corpuscular HGB CONC 32.4 g/dL (32.0-36.0); Mean Corpuscular Volume 89.4 fl (81.2-95.1); Mean Platelet Volume 10.8 fl (7.4-10.4); Platelet Count 299 10x3/uL (150-450); RBC Distribution Width 12.3 % (11.5-14.5); Red Blood Cell (RBC) Count 3.97 10x6/uL (4.32-5.72); White Blood Cell (WBC) Count 11.4 10x3/uL (3.5-10.5)
[2020-12-15 04:07] LABS: Anion Gap 10 mmol/L (10-20); BUN (Urea Nitrogen) 89 mg/dL (8.4-25.7); Calc. Creatinine Clearance 55 mL/min (70-130); Calcium 8.2 mg/dL (7.8-10.44); Carbon Dioxide 27 mmol/L (22-29); Chloride 107 mmol/L (98-107); Glucose 90 mg/dL (70-105); Potassium 3.9 mmol/L (3.5-5.1); Sodium 140 mmol/L (136-145)
[2020-12-15] MEDS: Midazolam HCl 100 MG in Premix Bag 1 BAG IVPB PRN ×2 (04:25→14:20)
[2020-12-15] MEDS: Fentanyl CADD 100 ML IV SCH ×2 (04:25→17:35)
[2020-12-15] MEDS: Sodium Chloride 0.9% 1,000 ML IV SCH ×2 (06:02→11:55)
[2020-12-15] MEDS: Cefepime 2 GM in Sodium Chloride 0.9% 100 ML IVPB SCH ×2 (06:02→16:35)
[2020-12-15] MEDS: Mometasone/Formoterol 200/5 60 PUFF INH SCH ×2 (07:00→19:20)
[2020-12-15] MEDS: Pantoprazole 40 MG VIAL IVP SCH ×2 (07:49→22:32)
[2020-12-15] MEDS: Zinc Sulfate 220 MG CAP PO SCH (07:49)
[2020-12-15] MEDS: Ascorbic Acid 500 mg Chewable Tablet PO SCH (07:49)
[2020-12-15] MEDS: Thiamine 100 MG TAB PO SCH (07:49)
[2020-12-15] MEDS: Cholecalciferol (Vitamin D3) 400 UNITS TAB PO SCH (07:49)
[2020-12-15 08:04] LABS: Actual Bicarbonate (HCO3a) 24.3 mEq/L (22-28); Base Excess (BEa) -1.2 mEq/L (-2.0 to +3.0); CO2 Tension 43.5 mmHg (35.0-45.0); Carboxyhemoglobin (COHb) 0.7 gm% (0.0-3.0); Hemoglobin (Hb) 12.6 g/dL (14.0-18.0); O2 Tension (PaO2), arterial 60.5 mmHg (80.0-100.0); Potassium - ABG Lab 3.9 mmol/L (3.70-5.30); Puncture Site LBA; pH, Arterial 7.37 (7.35-7.45)
[2020-12-15] MEDS: Enoxaparin Sodium 120 MG/0.8 ML SYRINGE SC SCH ×2 (11:55→23:54)
[2020-12-15 14:10] LABS: Bilirubin Neg (Negative); Blood, Urine 250 (Negative); Clarity Cloudy (Clear); Glucose, Urine (Dipstick) Normal (Negative); Ketone, Urine 5 mg/dL (Negative); Leukocyte 100 (Negative); Nitrite Negative (Negative); Protein, Urine (Dipstick) 100 mg/dl (Neg-Trace); Specific Gravity, Urine 1.015 (1.002-1.036); Urobilinogen Normal mg/dL (Less than 2)
[2020-12-15] MEDS: Dexamethasone 6 MG, Admixture Fee 1 EACH in Sodium Chloride 0.9% 50 ML IVPB SCH (14:19)
[2020-12-15 14:20] LABS: Urine Culture Reflex No No
[2020-12-15 14:21] LABS: Bacteria/HPF Rare-Few HPF (None Seen); RBC/HPF Greater than 50 HPF (0-3); Squamous Epithelial 0-3 HPF (0-3)
[2020-12-15] MEDS: Scopolamine 1.5 mg/72 hour Patch TD SCH (16:34)
[2020-12-15] MEDS: Vancomycin 1.5 GRAM/300 ML BAG 1.5 GM in Premix Bag 1 BAG IVPB SCH (17:32)
[2020-12-16] MEDS: Midazolam HCl 100 MG in Premix Bag 1 BAG IVPB PRN ×2 (00:52→08:12)
[2020-12-16] MEDS: Propofol 1,000 MG/100 ML VIAL IV PRN ×7 (01:53→21:36)
[2020-12-16] MEDS: Cefepime 2 GM in Sodium Chloride 0.9% 100 ML IVPB SCH ×2 (05:17→17:22)
[2020-12-16] MEDS: Fentanyl CADD 100 ML IV SCH ×2 (05:31→17:22)
[2020-12-16 06:10] LABS: #Eosinphils 0.1 10x3/uL (0.0-0.5); #Monocytes 0.5 10x3/uL (0.0-1.1); #Neutrophils 7.4 10x3/uL (1.5-8.4); %Basophils 0.1 % (0.0-2.0); %Eosinophils 1.2 % (0.0-6.0); %Lymphocytes 5.1 % (18.0-47.0); %Monocytes 5.6 % (0.0-10.0); %Neutrophils 86.9 % (40.0-75.0); Hemoglobin 11.5 g/dL (13.5-17.5); Mean Corpuscular HGB CONC 30.4 g/dL (32.0-36.0); Mean Corpuscular Hemoglobin 28.7 pg (27.0-33.0); Mean Corpuscular Volume 94.3 fl (81.2-95.1); Mean Platelet Volume 11.3 fl (7.4-10.4); Platelet Count 229 10x3/uL (150-450); RBC Distribution Width 12.5 % (11.5-14.5); Red Blood Cell (RBC) Count 4.01 10x6/uL (4.32-5.72); White Blood Cell (WBC) Count 8.5 10x3/uL (3.5-10.5)
[2020-12-16 06:21] LABS: Anion Gap 14 mmol/L (10-20); BUN (Urea Nitrogen) 90 mg/dL (8.4-25.7); CRP (Inflammatory) 10.28 mg/dL (= or < 0.5); Calc. Creatinine Clearance 72 mL/min (70-130); Calcium 9.1 mg/dL (7.8-10.44); Carbon Dioxide 25 mmol/L (22-29); Chloride 112 mmol/L (98-107); Glucose 119 mg/dL (70-105); Potassium 5.2 mmol/L (3.5-5.1); Sodium 146 mmol/L (136-145)
[2020-12-16] MEDS: Mometasone/Formoterol 200/5 60 PUFF INH SCH ×2 (07:01→21:58)
[2020-12-16] MEDS: Zinc Sulfate 220 MG CAP PO SCH (08:10)
[2020-12-16] MEDS: Pantoprazole 40 MG VIAL IVP SCH ×2 (08:10→21:36)
[2020-12-16] MEDS: Ascorbic Acid 500 mg Chewable Tablet PO SCH (08:10)
[2020-12-16] MEDS: Thiamine 100 MG TAB PO SCH (08:11)
[2020-12-16] MEDS: Cholecalciferol (Vitamin D3) 400 UNITS TAB PO SCH (08:11)
[2020-12-16] MEDS: Sodium Chloride 0.9% 1,000 ML IV SCH (09:15)
[2020-12-16] MEDS ORDERED: Ivermectin 3 MG TAB PO SCH (10:45)
[2020-12-16] MEDS: Enoxaparin Sodium 120 MG/0.8 ML SYRINGE SC SCH (11:03)
[2020-12-16] MEDS: Dexamethasone 6 MG, Admixture Fee 1 EACH in Sodium Chloride 0.9% 50 ML IVPB SCH (12:28)
[2020-12-16] MEDS: Norepinephrine 8 MG/0.9% NS 250 ML IVPB PRN (15:45)
[2020-12-16 16:47] LABS: Actual Bicarbonate (HCO3a) 25.8 mEq/L (22-28); Base Excess (BEa) -4.4 mEq/L (-2.0 to +3.0); CO2 Tension 74.6 mmHg (35.0-45.0); Carboxyhemoglobin (COHb) 0.3 gm% (0.0-3.0); Hemoglobin (Hb) 12.8 g/dL (14.0-18.0); O2 Tension (PaO2), arterial 79.3 mmHg (80.0-100.0); Potassium - ABG Lab 5.1 mmol/L (3.70-5.30); Puncture Site RBA; RapidComm Collect By EA; pH, Arterial 7.16 (7.35-7.45)
[2020-12-16 20:44] LABS: Actual Bicarbonate (HCO3a) 28.5 mEq/L (22-28); Base Excess (BEa) -3.5 mEq/L (-2.0 to +3.0); CO2 Tension 95.3 mmHg (35.0-45.0); Calcium, Ionized (arterial) 1.32 mmol/L (1.12-1.30); Carboxyhemoglobin (COHb) 0.3 gm% (0.0-3.0); Hemoglobin (Hb) 12.6 g/dL (14.0-18.0); O2 Tension (PaO2), arterial 91.9 mmHg (80.0-100.0); Potassium - ABG Lab 5.5 mmol/L (3.70-5.30); Puncture Site RRA; pH, Arterial 7.09 (7.35-7.45)
[2020-12-17] MEDS: Propofol 1,000 MG/100 ML VIAL IV PRN ×9 (00:48→22:49)
[2020-12-17 05:08] LABS: Base Excess (BEa) -4.8 mEq/L (-2.0 to +3.0); CO2 Tension 104.3 mmHg (35.0-45.0); Calcium, Ionized (arterial) 1.34 mmol/L (1.12-1.30); Carboxyhemoglobin (COHb) 0.5 gm% (0.0-3.0); Hemoglobin (Hb) 12.4 g/dL (14.0-18.0); Potassium - ABG Lab 5.6 mmol/L (3.70-5.30); Puncture Site RRA; pH, Arterial 7.05 (7.35-7.45)
[2020-12-17] MEDS: Cefepime 2 GM in Sodium Chloride 0.9% 100 ML IVPB SCH ×2 (05:15→17:24)
[2020-12-17] MEDS: Fentanyl CADD 100 ML IV SCH ×2 (05:49→17:31)
[2020-12-17] MEDS: Midazolam HCl 100 MG in Premix Bag 1 BAG IVPB PRN ×2 (05:50→17:30)
[2020-12-17 06:23] LABS: #Eosinphils 0.2 10x3/uL (0.0-0.5); #Monocytes 0.8 10x3/uL (0.0-1.1); #Neutrophils 8.7 10x3/uL (1.5-8.4); %Basophils 0.3 % (0.0-2.0); %Eosinophils 2.3 % (0.0-6.0); %Lymphocytes 5.8 % (18.0-47.0); %Monocytes 7.7 % (0.0-10.0); %Neutrophils 82.2 % (40.0-75.0); Hemoglobin 11.8 g/dL (13.5-17.5); Mean Corpuscular HGB CONC 29.7 g/dL (32.0-36.0); Mean Corpuscular Hemoglobin 28.7 pg (27.0-33.0); Mean Corpuscular Volume 96.6 fl (81.2-95.1); Platelet Count 208 10x3/uL (150-450); RBC Distribution Width 12.4 % (11.5-14.5); Red Blood Cell (RBC) Count 4.11 10x6/uL (4.32-5.72); White Blood Cell (WBC) Count 10.5 10x3/uL (3.5-10.5)
[2020-12-17 06:53] LABS: Vancomycin, Trough 12.5 ug/mL
[2020-12-17 06:55] LABS: Anion Gap 13 mmol/L (10-20); BUN (Urea Nitrogen) 96 mg/dL (8.4-25.7); Calc. Creatinine Clearance 63 mL/min (70-130); Calcium 9.3 mg/dL (7.8-10.44); Carbon Dioxide 27 mmol/L (22-29); Chloride 112 mmol/L (98-107); Glucose 126 mg/dL (70-105); Potassium 5.7 mmol/L (3.5-5.1); Sodium 146 mmol/L (136-145)
[2020-12-17] MEDS: Mometasone/Formoterol 200/5 60 PUFF INH SCH (07:47)
[2020-12-17] MEDS: Vancomycin 1.5 GRAM/300 ML BAG 1.5 GM in Premix Bag 1 BAG IVPB SCH (08:13)
[2020-12-17] MEDS ORDERED: Furosemide 100 MG/10 ML VIAL IVPB SCH (08:15)
[2020-12-17] MEDS ORDERED: Furosemide 100 MG/10 ML VIAL SLOW IVP SCH (08:15)
[2020-12-17] MEDS: Cholecalciferol (Vitamin D3) 400 UNITS TAB PO SCH (08:16)
[2020-12-17] MEDS: Thiamine 100 MG TAB PO SCH (08:16)
[2020-12-17] MEDS: Ascorbic Acid 500 mg Chewable Tablet PO SCH (08:16)
[2020-12-17] MEDS: Pantoprazole 40 MG VIAL IVP SCH ×2 (08:16→20:08)
[2020-12-17] MEDS: Zinc Sulfate 220 MG CAP PO SCH (08:16)
[2020-12-17] MEDS: Ivermectin 3 MG TAB PO SCH (08:18)
[2020-12-17] MEDS: Dexamethasone 6 MG, Admixture Fee 1 EACH in Sodium Chloride 0.9% 50 ML IVPB SCH (11:53)
[2020-12-17 12:48] LABS: Anion Gap 12 mmol/L (10-20); BUN (Urea Nitrogen) 102 mg/dL (8.4-25.7); Calc. Creatinine Clearance 57 mL/min (70-130); Calcium 9.1 mg/dL (7.8-10.44); Carbon Dioxide 29 mmol/L (22-29); Chloride 110 mmol/L (98-107); Glucose 152 mg/dL (70-105); Potassium 5.6 mmol/L (3.5-5.1); Sodium 145 mmol/L (136-145)
[2020-12-17 19:35] LABS: Actual Bicarbonate (HCO3a) 26.1 mEq/L (22-28); Base Excess (BEa) -6.4 mEq/L (-2.0 to +3.0); CO2 Tension 95.5 mmHg (35.0-45.0); Calcium, Ionized (arterial) 1.28 mmol/L (1.12-1.30); Carboxyhemoglobin (COHb) 0.7 gm% (0.0-3.0); Hemoglobin (Hb) 13.1 g/dL (14.0-18.0); O2 Tension (PaO2), arterial 113.1 mmHg (80.0-100.0); Potassium - ABG Lab 5.5 mmol/L (3.70-5.30); Puncture Site RRA; pH, Arterial 7.05 (7.35-7.45)
[2020-12-17] MEDS: Budesonide 0.5 MG/2 ML NEB NEB SCH (20:23)
[2020-12-17 23:25] LABS: PTT 28.1 sec (22.0-33.0); Prothrombin Time 10.5 sec (9.5-12.1)
[2020-12-17 23:28] LABS: ALT (SGPT) 107 U/L (8-55); AST (SGOT) 61 U/L (5-34); Albumin 2.8 g/dL (3.5-5.0); Alkaline Phosphatase 65 U/L (40-110); Bilirubin, Direct 0.2 mg/dL (0.1-0.3); Bilirubin, Total 0.3 mg/dL (0.2-1.2); Protein, Total 6.8 g/dL (6.0-8.3)
[2020-12-17] MEDS: Enoxaparin Sodium 120 MG/0.8 ML SYRINGE SC SCH (23:47)
[2020-12-18] MEDS: Propofol 1,000 MG/100 ML VIAL IV PRN ×7 (01:30→21:57)
[2020-12-18] MEDS: Norepinephrine 8 MG/0.9% NS 250 ML IVPB PRN (03:15)
[2020-12-18] MEDS: Midazolam HCl 100 MG in Premix Bag 1 BAG IVPB PRN ×2 (03:30→21:55)
[2020-12-18 04:20] LABS: Actual Bicarbonate (HCO3a) 24.7 mEq/L (22-28); Base Excess (BEa) -8.2 mEq/L (-2.0 to +3.0); CO2 Tension 97.7 mmHg (35.0-45.0); Calcium, Ionized (arterial) 1.29 mmol/L (1.12-1.30); Carboxyhemoglobin (COHb) 0.7 gm% (0.0-3.0); Hemoglobin (Hb) 12.8 g/dL (14.0-18.0); O2 Tension (PaO2), arterial 150.9 mmHg (80.0-100.0); Potassium - ABG Lab 5.3 mmol/L (3.70-5.30); Puncture Site RRA; pH, Arterial 7.02 (7.35-7.45)
[2020-12-18 04:59] LABS: #Eosinphils 0.3 10x3/uL (0.0-0.5); #Monocytes 0.8 10x3/uL (0.0-1.1); #Neutrophils 8.5 10x3/uL (1.5-8.4); %Basophils 0.3 % (0.0-2.0); %Eosinophils 2.7 % (0.0-6.0); %Lymphocytes 5.2 % (18.0-47.0); %Monocytes 7.6 % (0.0-10.0); %Neutrophils 81.9 % (40.0-75.0); Hemoglobin 11.9 g/dL (13.5-17.5); Mean Corpuscular HGB CONC 29.8 g/dL (32.0-36.0); Mean Corpuscular Hemoglobin 28.7 pg (27.0-33.0); Mean Corpuscular Volume 96.4 fl (81.2-95.1); Mean Platelet Volume 10.8 fl (7.4-10.4); Platelet Count 192 10x3/uL (150-450); RBC Distribution Width 12.6 % (11.5-14.5); Red Blood Cell (RBC) Count 4.14 10x6/uL (4.32-5.72); White Blood Cell (WBC) Count 10.4 10x3/uL (3.5-10.5)
[2020-12-18 05:12] LABS: Anion Gap 16 mmol/L (10-20); BUN (Urea Nitrogen) 107 mg/dL (8.4-25.7); CRP (Inflammatory) 5.37 mg/dL (= or < 0.5); Calc. Creatinine Clearance 53 mL/min (70-130); Calcium 9.2 mg/dL (7.8-10.44); Carbon Dioxide 24 mmol/L (22-29); Chloride 111 mmol/L (98-107); Glucose 123 mg/dL (70-105); Potassium 5.3 mmol/L (3.5-5.1); Sodium 146 mmol/L (136-145)
[2020-12-18] MEDS: Cefepime 2 GM in Sodium Chloride 0.9% 100 ML IVPB SCH ×2 (05:18→22:01)
[2020-12-18] MEDS: Budesonide 0.5 MG/2 ML NEB NEB SCH ×2 (07:13→20:17)
[2020-12-18] MEDS: Zinc Sulfate 220 MG CAP PO SCH (09:08)
[2020-12-18] MEDS: Ascorbic Acid 500 mg Chewable Tablet PO SCH (09:08)
[2020-12-18] MEDS: Pantoprazole 40 MG VIAL IVP SCH ×2 (09:08→21:57)
[2020-12-18] MEDS: Thiamine 100 MG TAB PO SCH (09:08)
[2020-12-18] MEDS: Ivermectin 3 MG TAB PO SCH (09:08)
[2020-12-18] MEDS: Cholecalciferol (Vitamin D3) 400 UNITS TAB PO SCH (09:08)
[2020-12-18] MEDS: Enoxaparin Sodium 120 MG/0.8 ML SYRINGE SC SCH (10:45)
[2020-12-18 12:12] LABS: Hep B Surf Ag Non-Reactive S/CO (NonReactive)
[2020-12-18] MEDS: Fentanyl CADD 100 ML IV SCH (13:00)
[2020-12-18 13:02] LABS: HBSAg Index 0.29 S/CO (0-0.99)
[2020-12-18] MEDS: Dexamethasone 6 MG, Admixture Fee 1 EACH in Sodium Chloride 0.9% 50 ML IVPB SCH (13:30)
[2020-12-18] MEDS ORDERED: Sodium Chloride 0.9% 50 ML ONE (13:37)
[2020-12-18] MEDS ORDERED: Dexamethasone 20 MG/5 ML VIAL ONE (13:37)
[2020-12-18 17:15] LABS: Vancomycin, Trough 20.5 ug/mL
[2020-12-18 17:39] LABS: HBSAB Concentration Less than 8.00 mIU/mL; Hep B Core Total Ab Non-Reactive (NonReactive); Hep B Core Total Index 0.14 S/CO (0-0.79); Hep B Surf AB Non-Reactive (NonReactive); Hep C IgG Ab Non-Reactive (NonReactive); Hep C Index 0.36 S/CO (0-0.79)
[2020-12-18] MEDS: Scopolamine 1.5 mg/72 hour Patch TD SCH (21:56)
[2020-12-18] MEDS: Vancomycin 1.5 GRAM/300 ML BAG 1.5 GM in Premix Bag 1 BAG IVPB SCH (21:56)
[2020-12-19] MEDS: Fentanyl CADD 100 ML IV SCH ×2 (00:49→17:55)
[2020-12-19] MEDS: Propofol 1,000 MG/100 ML VIAL IV PRN ×2 (00:49→04:29)
[2020-12-19 05:09] LABS: #Eosinphils 0.2 10x3/uL (0.0-0.5); #Monocytes 0.6 10x3/uL (0.0-1.1); #Neutrophils 8.5 10x3/uL (1.5-8.4); %Basophils 0.3 % (0.0-2.0); %Eosinophils 1.7 % (0.0-6.0); %Lymphocytes 4.9 % (18.0-47.0); %Monocytes 5.8 % (0.0-10.0); %Neutrophils 85.4 % (40.0-75.0); Hemoglobin 10.9 g/dL (13.5-17.5); Mean Corpuscular HGB CONC 29.5 g/dL (32.0-36.0); Mean Corpuscular Hemoglobin 28.2 pg (27.0-33.0); Mean Corpuscular Volume 95.3 fl (81.2-95.1); Mean Platelet Volume 10.9 fl (7.4-10.4); Platelet Count 167 10x3/uL (150-450); RBC Distribution Width 12.8 % (11.5-14.5); Red Blood Cell (RBC) Count 3.87 10x6/uL (4.32-5.72)
[2020-12-19 05:19] LABS: ALT (SGPT) 72 U/L (8-55); AST (SGOT) 29 U/L (5-34); Albumin 2.8 g/dL (3.5-5.0); Alkaline Phosphatase 67 U/L (40-110); Anion Gap 18 mmol/L (10-20); BUN (Urea Nitrogen) 110 mg/dL (8.4-25.7); Bilirubin, Total 0.3 mg/dL (0.2-1.2); Calc. Creatinine Clearance 49 mL/min (70-130); Calcium 8.8 mg/dL (7.8-10.44); Carbon Dioxide 22 mmol/L (22-29); Chloride 109 mmol/L (98-107); Globulin 3.7 g/dL (2.4-3.5); Glucose 108 mg/dL (70-105); Magnesium 2.6 mg/dL (1.6-2.6); Potassium 4.8 mmol/L (3.5-5.1); Protein, Total 6.5 g/dL (6.0-8.3); Sodium 144 mmol/L (136-145)
[2020-12-19] MEDS: Budesonide 0.5 MG/2 ML NEB NEB SCH ×2 (07:51→19:35)
[2020-12-19] MEDS: Enoxaparin Sodium 120 MG/0.8 ML SYRINGE SC SCH (09:19)
[2020-12-19] MEDS: Zinc Sulfate 220 MG CAP PO SCH (09:20)
[2020-12-19] MEDS: Thiamine 100 MG TAB PO SCH (09:20)
[2020-12-19] MEDS: Cholecalciferol (Vitamin D3) 400 UNITS TAB PO SCH (09:20)
[2020-12-19] MEDS: Ascorbic Acid 500 mg Chewable Tablet PO SCH (09:20)
[2020-12-19] MEDS: Ivermectin 3 MG TAB PO SCH (09:20)
[2020-12-19] MEDS: Pantoprazole 40 MG VIAL IVP SCH ×2 (09:20→21:20)
[2020-12-19] MEDS: Cefepime 2 GM in Sodium Chloride 0.9% 100 ML IVPB SCH ×2 (09:23→18:41)
[2020-12-19 10:26] LABS: Actual Bicarbonate (HCO3a) 23.3 mEq/L (22-28); Base Excess (BEa) -7.1 mEq/L (-2.0 to +3.0); CO2 Tension 74.2 mmHg (35.0-45.0); Calcium, Ionized (arterial) 1.25 mmol/L (1.12-1.30); Carboxyhemoglobin (COHb) 0.2 gm% (0.0-3.0); Hemoglobin (Hb) 11.8 g/dL (14.0-18.0); O2 Tension (PaO2), arterial 66.6 mmHg (80.0-100.0); Potassium - ABG Lab 4.3 mmol/L (3.70-5.30); Puncture Site RRA; pH, Arterial 7.12 (7.35-7.45)
[2020-12-19] MEDS: Dexamethasone 6 MG, Admixture Fee 1 EACH in Sodium Chloride 0.9% 50 ML IVPB SCH (12:36)
[2020-12-19] MEDS: Midazolam HCl 100 MG in Premix Bag 1 BAG IVPB PRN ×2 (12:36→23:20)
[2020-12-19] MEDS ORDERED: Albumin 25% 25 GM/100 ML BOT IVPB ONE (14:10)
[2020-12-19] MEDS ORDERED: Vancomycin 1.5 GRAM/300 ML BAG 1.5 GM in Premix Bag 1 BAG IVPB SCH (15:45)
[2020-12-19 19:03] LABS: Platelet Count 147 10x3/uL (150-450)
[2020-12-19 19:48] LABS: FSP-Qualitative ABNORMAL (Normal)
[2020-12-19 19:49] LABS: FSP-Semiquantitative >=20 & <40 mcg/mL (Less than 5)
[2020-12-19 20:30] LABS: D-Dimer Test 1.88 mg/L FEU (0.19-0.50); Fibrinogen 442 mg/dL (220-504); INR-International Normal Ratio 1.1; PTT 34.7 sec (22.0-33.0); Prothrombin Time 11.2 sec (9.5-12.1)
[2020-12-20] MEDS: Fentanyl CADD 100 ML IV SCH ×3 (02:40→22:25)
[2020-12-20 04:02] LABS: ALT (SGPT) 59 U/L (8-55); AST (SGOT) 31 U/L (5-34); Albumin 2.9 g/dL (3.5-5.0); Alkaline Phosphatase 69 U/L (40-110); Anion Gap 14 mmol/L (10-20); BUN (Urea Nitrogen) 107 mg/dL (8.4-25.7); Bilirubin, Total 0.3 mg/dL (0.2-1.2); CRP (Inflammatory) 4.25 mg/dL (= or < 0.5); Calc. Creatinine Clearance 47 mL/min (70-130); Calcium 8.6 mg/dL (7.8-10.44); Carbon Dioxide 26 mmol/L (22-29); Chloride 106 mmol/L (98-107); Globulin 3.6 g/dL (2.4-3.5); Glucose 79 mg/dL (70-105); Magnesium 2.5 mg/dL (1.6-2.6); Potassium 4.3 mmol/L (3.5-5.1); Protein, Total 6.5 g/dL (6.0-8.3); Sodium 142 mmol/L (136-145)
[2020-12-20 04:05] LABS: #Basophils 0.1 10x3/uL (0.0-0.2); #Eosinphils 0.3 10x3/uL (0.0-0.5); #Monocytes 0.6 10x3/uL (0.0-1.1); #Neutrophils 7.1 10x3/uL (1.5-8.4); %Basophils 0.6 % (0.0-2.0); %Eosinophils 3.5 % (0.0-6.0); %Monocytes 6.5 % (0.0-10.0); %Neutrophils 77.9 % (40.0-75.0); Hemoglobin 10.5 g/dL (13.5-17.5); Mean Corpuscular HGB CONC 30.5 g/dL (32.0-36.0); Mean Corpuscular Hemoglobin 28.4 pg (27.0-33.0); Mean Platelet Volume 11.2 fl (7.4-10.4); Platelet Count 143 10x3/uL (150-450); White Blood Cell (WBC) Count 9.1 10x3/uL (3.5-10.5)
[2020-12-20] MEDS: Cefepime 2 GM in Sodium Chloride 0.9% 100 ML IVPB SCH ×2 (05:45→17:01)
[2020-12-20] MEDS: Budesonide 0.5 MG/2 ML NEB NEB SCH ×2 (07:30→19:00)
[2020-12-20] MEDS: Albuterol Sulfate 2.5 mg/3 ml Neb NEB PRN ×2 (07:30→19:00)
[2020-12-20] MEDS: Midazolam HCl 100 MG in Premix Bag 1 BAG IVPB PRN ×2 (08:30→20:36)
[2020-12-20] MEDS: Ivermectin 3 MG TAB PO SCH (08:37)
[2020-12-20] MEDS: Pantoprazole 40 MG VIAL IVP SCH ×2 (08:37→20:24)
[2020-12-20] MEDS: Thiamine 100 MG TAB PO SCH (08:39)
[2020-12-20] MEDS: Zinc Sulfate 220 MG CAP PO SCH (08:39)
[2020-12-20] MEDS: Cholecalciferol (Vitamin D3) 400 UNITS TAB PO SCH (08:39)
[2020-12-20] MEDS: Ascorbic Acid 500 mg Chewable Tablet PO SCH (08:39)
[2020-12-20 09:03] LABS: Actual Bicarbonate (HCO3a) 23.1 mEq/L (22-28); Base Excess (BEa) -4.8 mEq/L (-2.0 to +3.0); CO2 Tension 56.5 mmHg (35.0-45.0); Calcium, Ionized (arterial) 1.21 mmol/L (1.12-1.30); Carboxyhemoglobin (COHb) 0.5 gm% (0.0-3.0); Hemoglobin (Hb) 10.9 g/dL (14.0-18.0); O2 Tension (PaO2), arterial 70.4 mmHg (80.0-100.0); Potassium - ABG Lab 3.9 mmol/L (3.70-5.30); Puncture Site LRA; pH, Arterial 7.23 (7.35-7.45)
[2020-12-20] MEDS: Enoxaparin Sodium 120 MG/0.8 ML SYRINGE SC SCH ×2 (09:27→10:39)
[2020-12-20] MEDS: Dexamethasone 6 MG, Admixture Fee 1 EACH in Sodium Chloride 0.9% 50 ML IVPB SCH (13:12)
[2020-12-20] MEDS ORDERED: Vancomycin 1.5 GRAM/300 ML BAG 1.5 GM in Premix Bag 1 BAG IVPB SCH (21:00)
[2020-12-20 21:04] LABS: Vancomycin, Random 21.5 ug/mL (See Comment)
[2020-12-21 04:57] LABS: Actual Bicarbonate (HCO3a) 24.8 mEq/L (22-28); Base Excess (BEa) -4.6 mEq/L (-2.0 to +3.0); CO2 Tension 66.4 mmHg (35.0-45.0); Calcium, Ionized (arterial) 1.22 mmol/L (1.12-1.30); Hemoglobin (Hb) 13.5 g/dL (14.0-18.0); O2 Tension (PaO2), arterial 71.4 mmHg (80.0-100.0); Puncture Site RRA; pH, Arterial 7.19 (7.35-7.45)
[2020-12-21] MEDS: Cefepime 2 GM in Sodium Chloride 0.9% 100 ML IVPB SCH (05:44)
[2020-12-21 06:27] LABS: Anion Gap 14 mmol/L (10-20); BUN (Urea Nitrogen) 101 mg/dL (8.4-25.7); Calc. Creatinine Clearance 41 mL/min (70-130); Calcium 8.7 mg/dL (7.8-10.44); Carbon Dioxide 25 mmol/L (22-29); Chloride 103 mmol/L (98-107); Glucose 76 mg/dL (70-105); Magnesium 2.4 mg/dL (1.6-2.6); Sodium 138 mmol/L (136-145)
[2020-12-21] MEDS: Zinc Sulfate 220 MG CAP PO SCH (07:14)
[2020-12-21] MEDS: Ascorbic Acid 500 mg Chewable Tablet PO SCH (07:14)
[2020-12-21] MEDS: Midazolam HCl 100 MG in Premix Bag 1 BAG IVPB PRN ×2 (07:14→17:59)
[2020-12-21] MEDS: Thiamine 100 MG TAB PO SCH (07:14)
[2020-12-21] MEDS: Cholecalciferol (Vitamin D3) 400 UNITS TAB PO SCH (07:14)
[2020-12-21] MEDS: Pantoprazole 40 MG VIAL IVP SCH ×2 (07:14→20:13)
[2020-12-21] MEDS: Dexamethasone 4 mg/ml Vial SLOW IVP SCH (07:14)
[2020-12-21] MEDS: Albuterol Sulfate 2.5 mg/3 ml Neb NEB PRN (07:34)
[2020-12-21] MEDS: Budesonide 0.5 MG/2 ML NEB NEB SCH ×2 (07:35→20:16)
[2020-12-21] MEDS: Enoxaparin Sodium 120 MG/0.8 ML SYRINGE SC SCH (09:23)
[2020-12-21] MEDS: VANCOMYCIN 1.25 GM/250 ML BAG 1.25 GM in Premix Bag 1 BAG IVPB SCH (09:24)
[2020-12-21] MEDS: Fentanyl CADD 100 ML IV SCH ×2 (12:11→21:16)
[2020-12-21] MEDS: Scopolamine 1.5 mg/72 hour Patch TD SCH (17:05)
[2020-12-22] MEDS: Midazolam HCl 100 MG in Premix Bag 1 BAG IVPB PRN (03:28)
[2020-12-22 04:53] LABS: Actual Bicarbonate (HCO3a) 26.8 mEq/L (22-28); Base Excess (BEa) -1.8 mEq/L (-2.0 to +3.0); CO2 Tension 66.6 mmHg (35.0-45.0); Calcium, Ionized (arterial) 1.23 mmol/L (1.12-1.30); Hemoglobin (Hb) 10.9 g/dL (14.0-18.0); O2 Tension (PaO2), arterial 60.9 mmHg (80.0-100.0); Potassium - ABG Lab 4.1 mmol/L (3.70-5.30); Puncture Site RRA; pH, Arterial 7.22 (7.35-7.45)
[2020-12-22 06:04] LABS: #Basophils 0.1 10x3/uL (0.0-0.2); #Eosinphils 0.9 10x3/uL (0.0-0.5); #Monocytes 0.8 10x3/uL (0.0-1.1); %Basophils 0.6 % (0.0-2.0); %Eosinophils 9.6 % (0.0-6.0); %Lymphocytes 9.5 % (18.0-47.0); %Monocytes 7.9 % (0.0-10.0); %Neutrophils 71.5 % (40.0-75.0); Hemoglobin 10.1 g/dL (13.5-17.5); Mean Corpuscular HGB CONC 31.8 g/dL (32.0-36.0); Mean Corpuscular Hemoglobin 28.9 pg (27.0-33.0); Mean Corpuscular Volume 90.9 fl (81.2-95.1); Mean Platelet Volume 10.6 fl (7.4-10.4); Platelet Count 125 10x3/uL (150-450); RBC Distribution Width 12.5 % (11.5-14.5); White Blood Cell (WBC) Count 9.8 10x3/uL (3.5-10.5)
[2020-12-22 06:17] LABS: ALT (SGPT) 56 U/L (8-55); AST (SGOT) 39 U/L (5-34); Albumin 2.8 g/dL (3.5-5.0); Alkaline Phosphatase 70 U/L (40-110); Anion Gap 17 mmol/L (10-20); BUN (Urea Nitrogen) 75 mg/dL (8.4-25.7); Bilirubin, Total 0.3 mg/dL (0.2-1.2); CRP (Inflammatory) 4.48 mg/dL (= or < 0.5); Calc. Creatinine Clearance 42 mL/min (70-130); Carbon Dioxide 24 mmol/L (22-29); Chloride 98 mmol/L (98-107); Globulin 3.8 g/dL (2.4-3.5); Glucose 82 mg/dL (70-105); Potassium 4.2 mmol/L (3.5-5.1); Protein, Total 6.6 g/dL (6.0-8.3); Sodium 135 mmol/L (136-145)
[2020-12-22] MEDS: Budesonide 0.5 MG/2 ML NEB NEB SCH ×2 (07:23→18:45)
[2020-12-22] MEDS: Pantoprazole 40 MG VIAL IVP SCH ×2 (09:37→21:47)
[2020-12-22] MEDS: Zinc Sulfate 220 MG CAP PO SCH (09:37)
[2020-12-22] MEDS: Enoxaparin Sodium 120 MG/0.8 ML SYRINGE SC SCH (09:37)
[2020-12-22] MEDS: Polyethylene Glycol 3350 17 GM Packet PER TUBE SCH (09:37)
[2020-12-22] MEDS: Dexamethasone 4 mg/ml Vial SLOW IVP SCH (09:37)
[2020-12-22] MEDS: Ascorbic Acid 500 mg Chewable Tablet PO SCH (09:37)
[2020-12-22] MEDS: Thiamine 100 MG TAB PO SCH (09:37)
[2020-12-22] MEDS: Cholecalciferol (Vitamin D3) 400 UNITS TAB PO SCH (09:37)
[2020-12-22] MEDS ORDERED: Fentanyl CADD 100 ML ONE (11:47)
[2020-12-22] MEDS: Vecuronium Bromide 50 MG in Sodium Chloride 0.9% 250 ML 250 ML IV SCH (14:09)
[2020-12-22] MEDS ORDERED: Fentanyl BOLUS 250 ML IVPB PRN (17:00)
[2020-12-22] MEDS ORDERED: Morphine 2 MG/ML VIAL SLOW IVP PRN (17:00)
[2020-12-22] MEDS ORDERED: Lorazepam 2 MG/ML VIAL SLOW IVP PRN (17:00)
[2020-12-22] MEDS ORDERED: Propofol BOLUS 1,000 MG/100 ML VIAL IV PRN (17:00)
[2020-12-22] MEDS ORDERED: DISCONTINUE PREVIOUS NARCOTIC PAIN MEDICATIONS AND BENZODIAZEPINES FS SCH (17:00)
[2020-12-22] MEDS ORDERED: Propofol 1,000 MG/100 ML VIAL IV PRN (17:00)
[2020-12-22] MEDS: Fentanyl CADD 100 ML IV SCH (21:47)
[2020-12-23] MEDS: Vecuronium Bromide 50 MG in Sodium Chloride 0.9% 250 ML 250 ML IV SCH ×3 (02:47→19:36)
[2020-12-23 03:24] LABS: Actual Bicarbonate (HCO3a) 28.2 mEq/L (22-28); Base Excess (BEa) -6.4 mEq/L (-2.0 to +3.0); CO2 Tension 128.7 mmHg (35.0-45.0); Calcium, Ionized (arterial) 1.27 mmol/L (1.12-1.30); Carboxyhemoglobin (COHb) 1.3 gm% (0.0-3.0); Hemoglobin (Hb) 12.1 g/dL (14.0-18.0); O2 Tension (PaO2), arterial 65.2 mmHg (80.0-100.0); Potassium - ABG Lab 5.5 mmol/L (3.70-5.30); Puncture Site RRA; pH, Arterial 6.96 (7.35-7.45)
[2020-12-23 04:12] LABS: #Basophils 0.1 10x3/uL (0.0-0.2); #Eosinphils 0.8 10x3/uL (0.0-0.5); #Monocytes 1.5 10x3/uL (0.0-1.1); #Neutrophils 13.4 10x3/uL (1.5-8.4); %Basophils 0.5 % (0.0-2.0); %Eosinophils 4.6 % (0.0-6.0); %Monocytes 8.6 % (0.0-10.0); %Neutrophils 78.9 % (40.0-75.0); Mean Corpuscular HGB CONC 31.7 g/dL (32.0-36.0); Mean Corpuscular Hemoglobin 29.3 pg (27.0-33.0); Mean Corpuscular Volume 92.3 fl (81.2-95.1); Mean Platelet Volume 10.6 fl (7.4-10.4); Platelet Count 172 10x3/uL (150-450); RBC Distribution Width 12.5 % (11.5-14.5); Red Blood Cell (RBC) Count 3.76 10x6/uL (4.32-5.72)
[2020-12-23 04:24] LABS: ALT (SGPT) 53 U/L (8-55); AST (SGOT) 36 U/L (5-34); Albumin 3.3 g/dL (3.5-5.0); Alkaline Phosphatase 89 U/L (40-110); Anion Gap 16 mmol/L (10-20); BUN (Urea Nitrogen) 68 mg/dL (8.4-25.7); Bilirubin, Total 0.3 mg/dL (0.2-1.2); Calc. Creatinine Clearance 38 mL/min (70-130); Calcium 9.4 mg/dL (7.8-10.44); Carbon Dioxide 27 mmol/L (22-29); Chloride 95 mmol/L (98-107); Globulin 4.2 g/dL (2.4-3.5); Glucose 110 mg/dL (70-105); Potassium 5.5 mmol/L (3.5-5.1); Protein, Total 7.5 g/dL (6.0-8.3); Sodium 132 mmol/L (136-145)
[2020-12-23] MEDS: Budesonide 0.5 MG/2 ML NEB NEB SCH ×2 (06:40→18:59)
[2020-12-23] MEDS: Albuterol Sulfate 2.5 mg/3 ml Neb NEB PRN (06:40)
[2020-12-23] MEDS ORDERED: Ventilator Sedation Protocol 1 EACH FS PRN (08:34)
[2020-12-23 08:42] LABS: Actual Bicarbonate (HCO3a) 26.2 mEq/L (22-28); Base Excess (BEa) -5.8 mEq/L (-2.0 to +3.0); Calcium, Ionized (arterial) 1.22 mmol/L (1.12-1.30); Carboxyhemoglobin (COHb) 1.6 gm% (0.0-3.0); Hemoglobin (Hb) 11.3 g/dL (14.0-18.0); O2 Tension (PaO2), arterial 65.3 mmHg (80.0-100.0); Potassium - ABG Lab 5.5 mmol/L (3.70-5.30); Puncture Site RRA; pH, Arterial 7.05 (7.35-7.45)
[2020-12-23] MEDS: Fentanyl CADD 100 ML IV SCH ×2 (11:00→20:55)
[2020-12-23] MEDS: Dexamethasone 4 mg/ml Vial SLOW IVP SCH (11:40)
[2020-12-23] MEDS: Polyethylene Glycol 3350 17 GM Packet PER TUBE SCH (11:40)
[2020-12-23] MEDS: Pantoprazole 40 MG VIAL IVP SCH ×2 (11:40→20:55)
[2020-12-23] MEDS: VANCOMYCIN 1.25 GM/250 ML BAG 1.25 GM in Premix Bag 1 BAG IVPB SCH (11:40)
[2020-12-23] MEDS: Ascorbic Acid 500 mg Chewable Tablet PO SCH (11:40)
[2020-12-23] MEDS: Thiamine 100 MG TAB PO SCH (11:40)
[2020-12-23] MEDS: Cholecalciferol (Vitamin D3) 400 UNITS TAB PO SCH (11:40)
[2020-12-23] MEDS: Enoxaparin Sodium 120 MG/0.8 ML SYRINGE SC SCH (11:41)
[2020-12-23] MEDS: Zinc Sulfate 220 MG CAP PO SCH (11:41)
[2020-12-23 12:06] LABS: Actual Bicarbonate (HCO3a) 24.4 mEq/L (22-28); Base Excess (BEa) -2.4 mEq/L (-2.0 to +3.0); CO2 Tension 51.6 mmHg (35.0-45.0); Calcium, Ionized (arterial) 1.17 mmol/L (1.12-1.30); Carboxyhemoglobin (COHb) 1.5 gm% (0.0-3.0); Hemoglobin (Hb) 11.1 g/dL (14.0-18.0); O2 Tension (PaO2), arterial 50.8 mmHg (80.0-100.0); Potassium - ABG Lab 4.6 mmol/L (3.70-5.30); Puncture Site LBA; pH, Arterial 7.29 (7.35-7.45)
[2020-12-23] MEDS: Midazolam HCl 100 MG in Premix Bag 1 BAG IVPB PRN ×2 (12:30→22:26)
[2020-12-23] MEDS ORDERED: Piperacillin/Tazobactam 3.375 GM in Sodium Chloride 0.9% 100 ML IVPB SCH (13:30)
[2020-12-23] MEDS ORDERED: Piperacillin/Tazobactam 2.25 GM in Sodium Chloride 0.9% 100 ML IVPB SCH (14:00)
[2020-12-23 14:08] LABS: Actual Bicarbonate (HCO3a) 25.8 mEq/L (22-28); Base Excess (BEa) -2.6 mEq/L (-2.0 to +3.0); CO2 Tension 61.9 mmHg (35.0-45.0); Calcium, Ionized (arterial) 1.17 mmol/L (1.12-1.30); Carboxyhemoglobin (COHb) 1.7 gm% (0.0-3.0); Hemoglobin (Hb) 12.8 g/dL (14.0-18.0); O2 Tension (PaO2), arterial 89.8 mmHg (80.0-100.0); Potassium - ABG Lab 3.8 mmol/L (3.70-5.30); Puncture Site LBA; pH, Arterial 7.24 (7.35-7.45)
[2020-12-23] MEDS: Micafungin 100 MG in Sodium Chloride 0.9% 100 ML IVPB SCH (17:02)
[2020-12-23] MEDS: Heparin 5,000 UNITS/ML VIAL SC SCH ×2 (17:03→20:55)
[2020-12-23] MEDS: Piperacillin/Tazobactam 3.375 GM in Sodium Chloride 0.9% 100 ML IVPB SCH (17:30)
[2020-12-23] MEDS: Norepinephrine 8 MG/0.9% NS 250 ML IVPB PRN (18:00)
[2020-12-23 18:27] LABS: ALV-art Gradient 545.825 mmHg (0-20)
[2020-12-23] MEDS ORDERED: Pantoprazole 40 MG VIAL ONE ×2 (20:42)
[2020-12-24] MEDS: Piperacillin/Tazobactam 3.375 GM in Sodium Chloride 0.9% 100 ML IVPB SCH ×3 (00:56→16:34)
[2020-12-24] MEDS: Vecuronium Bromide 50 MG in Sodium Chloride 0.9% 250 ML 250 ML IV SCH ×4 (02:37→23:27)
[2020-12-24 03:23] LABS: ALV-art Gradient 439.025 mmHg (0-20); Actual Bicarbonate (HCO3a) 23.8 mEq/L (22-28); Base Excess (BEa) -3.5 mEq/L (-2.0 to +3.0); CO2 Tension 53.5 mmHg (35.0-45.0); Carboxyhemoglobin (COHb) 0.8 gm% (0.0-3.0); Hemoglobin (Hb) 10.7 g/dL (14.0-18.0); O2 Tension (PaO2), arterial 64.5 mmHg (80.0-100.0); Potassium - ABG Lab 4.4 mmol/L (3.70-5.30); Puncture Site RRA; pH, Arterial 7.27 (7.35-7.45)
[2020-12-24 05:25] LABS: #Basophils 0.1 10x3/uL (0.0-0.2); #Eosinphils 0.7 10x3/uL (0.0-0.5); #Monocytes 1.1 10x3/uL (0.0-1.1); #Neutrophils 7.3 10x3/uL (1.5-8.4); %Basophils 0.7 % (0.0-2.0); %Eosinophils 6.5 % (0.0-6.0); %Monocytes 10.6 % (0.0-10.0); %Neutrophils 69.5 % (40.0-75.0); Hemoglobin 9.5 g/dL (13.5-17.5); Mean Corpuscular HGB CONC 33.2 g/dL (32.0-36.0); Mean Corpuscular Hemoglobin 29.1 pg (27.0-33.0); Mean Corpuscular Volume 87.5 fl (81.2-95.1); Mean Platelet Volume 10.4 fl (7.4-10.4); Platelet Count 152 10x3/uL (150-450); RBC Distribution Width 12.4 % (11.5-14.5); Red Blood Cell (RBC) Count 3.27 10x6/uL (4.32-5.72); White Blood Cell (WBC) Count 10.5 10x3/uL (3.5-10.5)
[2020-12-24 05:30] LABS: ALT (SGPT) 40 U/L (8-55); AST (SGOT) 30 U/L (5-34); Alkaline Phosphatase 71 U/L (40-110); Anion Gap 14 mmol/L (10-20); BUN (Urea Nitrogen) 65 mg/dL (8.4-25.7); Bilirubin, Total 0.4 mg/dL (0.2-1.2); Calc. Creatinine Clearance 38 mL/min (70-130); Calcium 8.8 mg/dL (7.8-10.44); Carbon Dioxide 25 mmol/L (22-29); Chloride 96 mmol/L (98-107); Globulin 3.7 g/dL (2.4-3.5); Glucose 87 mg/dL (70-105); Potassium 4.3 mmol/L (3.5-5.1); Protein, Total 6.7 g/dL (6.0-8.3); Sodium 131 mmol/L (136-145)
[2020-12-24] MEDS: Fentanyl CADD 100 ML IV SCH ×2 (06:29→19:43)
[2020-12-24] MEDS: Budesonide 0.5 MG/2 ML NEB NEB SCH ×2 (07:07→19:38)
[2020-12-24] MEDS: Dexamethasone 4 mg/ml Vial SLOW IVP SCH (07:54)
[2020-12-24] MEDS: Polyethylene Glycol 3350 17 GM Packet PER TUBE SCH (07:55)
[2020-12-24] MEDS: Ascorbic Acid 500 mg Chewable Tablet PO SCH (07:55)
[2020-12-24] MEDS: Thiamine 100 MG TAB PO SCH (07:55)
[2020-12-24] MEDS: Cholecalciferol (Vitamin D3) 400 UNITS TAB PO SCH (07:55)
[2020-12-24] MEDS: Zinc Sulfate 220 MG CAP PO SCH (07:56)
[2020-12-24] MEDS: Pantoprazole 40 MG VIAL IVP SCH ×2 (07:56→20:55)
[2020-12-24] MEDS: Heparin 5,000 UNITS/ML VIAL SC SCH ×3 (08:58→20:55)
[2020-12-24] MEDS ORDERED: Albumin 25% 25 GM/100 ML BOT IVPB PRN (10:52)
[2020-12-24 11:12] LABS: Actual Bicarbonate (HCO3a) 23.8 mEq/L (22-28); Base Excess (BEa) -3.8 mEq/L (-2.0 to +3.0); CO2 Tension 55.2 mmHg (35.0-45.0); Calcium, Ionized (arterial) 1.19 mmol/L (1.12-1.30); Carboxyhemoglobin (COHb) 1.1 gm% (0.0-3.0); Hemoglobin (Hb) 10.7 g/dL (14.0-18.0); O2 Tension (PaO2), arterial 58.1 mmHg (80.0-100.0); Potassium - ABG Lab 4.4 mmol/L (3.70-5.30); Puncture Site LRA; RapidComm Collect By EA; pH, Arterial 7.25 (7.35-7.45)
[2020-12-24] MEDS: Micafungin 100 MG in Sodium Chloride 0.9% 100 ML IVPB SCH (13:33)
[2020-12-24] MEDS: Scopolamine 1.5 mg/72 hour Patch TD SCH (16:33)
[2020-12-24] MEDS: Midazolam HCl 100 MG in Premix Bag 1 BAG IVPB PRN (23:28)
[2020-12-25] MEDS: Piperacillin/Tazobactam 3.375 GM in Sodium Chloride 0.9% 100 ML IVPB SCH ×3 (01:29→16:46)
[2020-12-25] MEDS: Fentanyl CADD 100 ML IV SCH ×2 (04:57→16:43)
[2020-12-25 06:59] LABS: Hemoglobin 8.8 g/dL (13.5-17.5); Mean Corpuscular HGB CONC 33.1 g/dL (32.0-36.0); Mean Corpuscular Hemoglobin 28.9 pg (27.0-33.0); Mean Corpuscular Volume 87.2 fl (81.2-95.1); Mean Platelet Volume 10.7 fl (7.4-10.4); Platelet Count 189 10x3/uL (150-450); RBC Distribution Width 12.7 % (11.5-14.5); Red Blood Cell (RBC) Count 3.05 10x6/uL (4.32-5.72); White Blood Cell (WBC) Count 10.2 10x3/uL (3.5-10.5)
[2020-12-25] MEDS: Budesonide 0.5 MG/2 ML NEB NEB SCH ×2 (07:10→19:27)
[2020-12-25 07:14] LABS: Albumin 3.5 g/dL (3.5-5.0); Anion Gap 16 mmol/L (10-20); BUN (Urea Nitrogen) 57 mg/dL (8.4-25.7); BUN/Creatinine Ratio 15.16; Calc. Creatinine Clearance 40 mL/min (70-130); Calcium 9.1 mg/dL (7.8-10.44); Carbon Dioxide 23 mmol/L (22-29); Chloride 98 mmol/L (98-107); Glucose 88 mg/dL (70-105); Phosphorus 4.7 mg/dL (2.3-4.7); Potassium 3.4 mmol/L (3.5-5.1); Sodium 134 mmol/L (136-145)
[2020-12-25] MEDS: Vecuronium Bromide 50 MG in Sodium Chloride 0.9% 250 ML 250 ML IV SCH ×3 (07:34→21:06)
[2020-12-25] MEDS: Polyethylene Glycol 3350 17 GM Packet PER TUBE SCH (08:10)
[2020-12-25] MEDS: Dexamethasone 4 mg/ml Vial SLOW IVP SCH (08:11)
[2020-12-25] MEDS: Heparin 5,000 UNITS/ML VIAL SC SCH ×3 (08:11→21:04)
[2020-12-25] MEDS: Ascorbic Acid 500 mg Chewable Tablet PO SCH (08:12)
[2020-12-25] MEDS: Pantoprazole 40 MG VIAL IVP SCH ×2 (08:12→21:08)
[2020-12-25] MEDS: Zinc Sulfate 220 MG CAP PO SCH (08:12)
[2020-12-25] MEDS: Cholecalciferol (Vitamin D3) 400 UNITS TAB PO SCH (08:12)
[2020-12-25] MEDS: Thiamine 100 MG TAB PO SCH (08:13)
[2020-12-25] MEDS: Midazolam HCl 100 MG in Premix Bag 1 BAG IVPB PRN ×2 (09:37→19:45)
[2020-12-25 09:38] LABS: Vancomycin, Trough 11.6 ug/mL
[2020-12-25] MEDS ORDERED: Vancomycin HCl 1.25 GM in Sodium Chloride 0.9% 250 ML 250 ML IVPB SCH (10:15)
[2020-12-25] MEDS ORDERED: Vancomycin 1 GM in Premix Bag 1 BAG IVPB SCH (10:15)
[2020-12-25] MEDS ORDERED: Vancomycin HCl 1.5 GM in Sodium Chloride 0.9% 250 ML 300 ML IVPB SCH (10:15)
[2020-12-25] MEDS ORDERED: Vancomycin HCl 750 MG in Sodium Chloride 0.9% 250 ML 250 ML IVPB SCH (10:15)
[2020-12-25] MEDS ORDERED: HOLD VANCOMYCIN FOR LEVEL >20 FS SCH (10:15)
[2020-12-25] MEDS ORDERED: Albumin 25% 25 GM/100 ML BOT IVPB PRN (11:14)
[2020-12-25] MEDS ORDERED: Vancomycin HCl 1 GM in Sodium Chloride 0.9% 250 ML 250 ML IVPB SCH (12:00)
[2020-12-25] MEDS: Micafungin 100 MG in Sodium Chloride 0.9% 100 ML IVPB SCH (13:18)
[2020-12-25 15:42] LABS: Base Excess (BEa) -4.6 mEq/L (-2.0 to +3.0); CO2 Tension 47.1 mmHg (35.0-45.0); Carboxyhemoglobin (COHb) 0.3 gm% (0.0-3.0); Hemoglobin (Hb) 9.9 g/dL (14.0-18.0); O2 Tension (PaO2), arterial 96.6 mmHg (80.0-100.0); pH, Arterial 7.29 (7.35-7.45)
[2020-12-25 15:43] LABS: Calcium, Ionized (arterial) 1.21 mmol/L (1.12-1.30); Potassium - ABG Lab 4.1 mmol/L (3.70-5.30); Puncture Site RBA
[2020-12-25 15:44] LABS: ALV-art Gradient 449.475 mmHg (0-20); Actual Bicarbonate (HCO3a) 25.8 mEq/L (22-28); Base Excess (BEa) -1.5 mEq/L (-2.0 to +3.0); CO2 Tension 55.7 mmHg (35.0-45.0); Calcium, Ionized (arterial) 1.21 mmol/L (1.12-1.30); Carboxyhemoglobin (COHb) 0.7 gm% (0.0-3.0); Hemoglobin (Hb) 11.1 g/dL (14.0-18.0); Notified Whom: rn/telemed inrounds; O2 Tension (PaO2), arterial 51.3 mmHg (80.0-100.0); Potassium - ABG Lab 3.5 mmol/L (3.70-5.30); Puncture Site LRA; pH, Arterial 7.28 (7.35-7.45)
[2020-12-25] MEDS: Acetaminophen 325 MG TAB PO PRN (15:44)
[2020-12-25 15:46] LABS: ALV-art Gradient 486.225 mmHg (0-20)
[2020-12-26] MEDS: Fentanyl CADD 100 ML IV SCH ×2 (00:55→13:58)
[2020-12-26] MEDS: Piperacillin/Tazobactam 3.375 GM in Sodium Chloride 0.9% 100 ML IVPB SCH ×2 (00:55→09:46)
[2020-12-26 03:51] LABS: Hemoglobin 8.7 g/dL (13.5-17.5); Mean Corpuscular HGB CONC 33.2 g/dL (32.0-36.0); Mean Corpuscular Hemoglobin 29.2 pg (27.0-33.0); Mean Corpuscular Volume 87.9 fl (81.2-95.1); Mean Platelet Volume 10.3 fl (7.4-10.4); Platelet Count 195 10x3/uL (150-450); Red Blood Cell (RBC) Count 2.98 10x6/uL (4.32-5.72); White Blood Cell (WBC) Count 11.2 10x3/uL (3.5-10.5)
[2020-12-26 04:07] LABS: Vancomycin, Random 29.2 ug/mL (See Comment)
[2020-12-26 04:09] LABS: Anion Gap 18 mmol/L (10-20)
[2020-12-26 04:29] LABS: Albumin 4.1 g/dL (3.5-5.0); BUN (Urea Nitrogen) 59 mg/dL (8.4-25.7); BUN/Creatinine Ratio 14.11; Calc. Creatinine Clearance 36 mL/min (70-130); Calcium 9.5 mg/dL (7.8-10.44); Carbon Dioxide 23 mmol/L (22-29); Chloride 96 mmol/L (98-107); Glucose 77 mg/dL (70-105); Potassium 3.6 mmol/L (3.5-5.1); Sodium 133 mmol/L (136-145)
[2020-12-26 06:18] LABS: Iron 51 ug/dL (65-175); Iron Binding Capacity, Total 200 mcg/dL (261-462)
[2020-12-26] MEDS: Midazolam HCl 100 MG in Premix Bag 1 BAG IVPB PRN ×2 (06:28→18:34)
[2020-12-26] MEDS: Budesonide 0.5 MG/2 ML NEB NEB SCH ×2 (07:25→19:42)
[2020-12-26] MEDS: Albuterol Sulfate 2.5 mg/3 ml Neb NEB PRN (07:25)
[2020-12-26] MEDS: Thiamine 100 MG TAB PO SCH (08:02)
[2020-12-26] MEDS: Ascorbic Acid 500 mg Chewable Tablet PO SCH (08:02)
[2020-12-26] MEDS: Zinc Sulfate 220 MG CAP PO SCH (08:02)
[2020-12-26] MEDS: Dexamethasone 4 mg/ml Vial SLOW IVP SCH (08:02)
[2020-12-26] MEDS: Cholecalciferol (Vitamin D3) 400 UNITS TAB PO SCH (08:02)
[2020-12-26] MEDS: Heparin 5,000 UNITS/ML VIAL SC SCH ×3 (08:03→21:27)
[2020-12-26] MEDS: Pantoprazole 40 MG VIAL IVP SCH ×2 (08:04→21:27)
[2020-12-26] MEDS: Polyethylene Glycol 3350 17 GM Packet PER TUBE SCH (08:05)
[2020-12-26] MEDS ORDERED: Iron Sucrose Complex 100 MG in Sodium Chloride 0.9% 100 ML IVPB SCH (09:00)
[2020-12-26] MEDS ORDERED: Albumin 25% 25 GM/100 ML BOT IVPB PRN (11:15)
[2020-12-26 12:47] LABS: Vancomycin, Random 26.4 ug/mL (See Comment)
[2020-12-26] MEDS: Micafungin 100 MG in Sodium Chloride 0.9% 100 ML IVPB SCH (13:47)
[2020-12-27] MEDS: Vecuronium Bromide 50 MG in Sodium Chloride 0.9% 250 ML 250 ML IV SCH (02:00)
[2020-12-27 04:08] LABS: Hemoglobin 8.8 g/dL (13.5-17.5); Mean Corpuscular HGB CONC 33.2 g/dL (32.0-36.0); Mean Corpuscular Volume 87.5 fl (81.2-95.1); Mean Platelet Volume 10.1 fl (7.4-10.4); Platelet Count 239 10x3/uL (150-450); RBC Distribution Width 13.2 % (11.5-14.5); Red Blood Cell (RBC) Count 3.03 10x6/uL (4.32-5.72); White Blood Cell (WBC) Count 12.3 10x3/uL (3.5-10.5)
[2020-12-27 04:13] LABS: Anion Gap 19 mmol/L (10-20); Vancomycin, Random 23.3 ug/mL (See Comment)
[2020-12-27 04:32] LABS: Albumin 3.6 g/dL (3.5-5.0); BUN (Urea Nitrogen) 86 mg/dL (8.4-25.7); BUN/Creatinine Ratio 14.88; Calc. Creatinine Clearance 26 mL/min (70-130); Calcium 9.2 mg/dL (7.8-10.44); Carbon Dioxide 20 mmol/L (22-29); Chloride 99 mmol/L (98-107); Glucose 82 mg/dL (70-105); Phosphorus 8.4 mg/dL (2.3-4.7); Sodium 134 mmol/L (136-145)
[2020-12-27] MEDS ORDERED: Epoetin (ESRD) 20,000 UNITS/ML SC SCH (06:27)
[2020-12-27] MEDS: Budesonide 0.5 MG/2 ML NEB NEB SCH ×2 (07:09→19:42)
[2020-12-27] MEDS ORDERED: Iron, Sodium Ferric Gluconate 125 MG in Sodium Chloride 0.9% 100 ML IVPB SCH ×2 (09:00)
[2020-12-27] MEDS: Cholecalciferol (Vitamin D3) 400 UNITS TAB PO SCH (09:23)
[2020-12-27] MEDS: Ascorbic Acid 500 mg Chewable Tablet PO SCH (09:23)
[2020-12-27] MEDS: Heparin 5,000 UNITS/ML VIAL SC SCH ×3 (09:23→20:25)
[2020-12-27] MEDS: Zinc Sulfate 220 MG CAP PO SCH (09:23)
[2020-12-27] MEDS: Pantoprazole 40 MG VIAL IVP SCH ×2 (09:23→20:25)
[2020-12-27] MEDS: Thiamine 100 MG TAB PO SCH (09:23)
[2020-12-27] MEDS: Dexamethasone 4 mg/ml Vial SLOW IVP SCH (09:23)
[2020-12-27] MEDS: Polyethylene Glycol 3350 17 GM Packet PER TUBE SCH (09:24)
[2020-12-27] MEDS: Midazolam HCl 100 MG in Premix Bag 1 BAG IVPB PRN ×2 (09:44→20:25)
[2020-12-27 09:54] LABS: CO2 Tension 50.7 mmHg (35.0-45.0); O2 Tension (PaO2), arterial 63.4 mmHg (80.0-100.0); pH, Arterial 7.23 (7.35-7.45)
[2020-12-27 09:55] LABS: ALV-art Gradient 372.325 mmHg (0-20); Actual Bicarbonate (HCO3a) 20.9 mEq/L (22-28); Base Excess (BEa) -6.5 mEq/L (-2.0 to +3.0); Calcium, Ionized (arterial) 1.25 mmol/L (1.12-1.30); Carboxyhemoglobin (COHb) 0.7 gm% (0.0-3.0); Hemoglobin (Hb) 10.5 g/dL (14.0-18.0); Potassium - ABG Lab 3.6 mmol/L (3.70-5.30); Puncture Site LRA; RapidComm Collect By BB
[2020-12-27] MEDS ORDERED: Albumin 25% 25 GM/100 ML BOT IVPB PRN (11:38)
[2020-12-27] MEDS ORDERED: Sterile Water 10 ML VIAL FS SCH (11:45)
[2020-12-27] MEDS ORDERED: Activase 2 MG VIAL CATH SCH (11:45)
[2020-12-27] MEDS ORDERED: Vecuronium Bromide 50 MG in Sodium Chloride 0.9% 250 ML 250 ML IV SCH (14:00)
[2020-12-27] MEDS: EPOETIN ALFA-EPBX (ESRD) 3,000 UNIT/ML VIAL SC SCH (16:20)
[2020-12-27] MEDS: EPOETIN ALFA-EPBX (ESRD) 2,000 UNIT/ML VIAL SC SCH (16:20)
[2020-12-27] MEDS: Scopolamine 1.5 mg/72 hour Patch TD SCH (17:35)
[2020-12-28] MEDS: Vecuronium Bromide 50 MG in Sodium Chloride 0.9% 250 ML 250 ML IV SCH ×3 (00:07→23:46)
[2020-12-28] MEDS: Fentanyl CADD 100 ML IV SCH ×3 (00:07→22:28)
[2020-12-28 04:16] LABS: #Basophils 0.1 10x3/uL (0.0-0.2); #Eosinphils 0.5 10x3/uL (0.0-0.5); #Monocytes 1.2 10x3/uL (0.0-1.1); %Basophils 0.5 % (0.0-2.0); %Eosinophils 4.1 % (0.0-6.0); %Lymphocytes 8.2 % (18.0-47.0); %Monocytes 9.3 % (0.0-10.0); %Neutrophils 75.7 % (40.0-75.0); Mean Corpuscular HGB CONC 33.5 g/dL (32.0-36.0); Mean Corpuscular Hemoglobin 29.3 pg (27.0-33.0); Mean Corpuscular Volume 87.6 fl (81.2-95.1); Mean Platelet Volume 10.1 fl (7.4-10.4); Platelet Count 262 10x3/uL (150-450); RBC Distribution Width 14.2 % (11.5-14.5); Red Blood Cell (RBC) Count 3.07 10x6/uL (4.32-5.72); White Blood Cell (WBC) Count 13.2 10x3/uL (3.5-10.5)
[2020-12-28 04:17] LABS: Anion Gap 18 mmol/L (10-20)
[2020-12-28 04:28] LABS: Albumin 4.2 g/dL (3.5-5.0); BUN (Urea Nitrogen) 50 mg/dL (8.4-25.7); BUN/Creatinine Ratio 12.35; Calc. Creatinine Clearance 37 mL/min (70-130); Calcium 9.4 mg/dL (7.8-10.44); Carbon Dioxide 24 mmol/L (22-29); Chloride 99 mmol/L (98-107); Glucose 91 mg/dL (70-105); Phosphorus 4.2 mg/dL (2.3-4.7); Sodium 138 mmol/L (136-145)
[2020-12-28] MEDS ORDERED: Potassium Bicarbonate/Cit Ac 20 MEQ TAB PER TUBE SCH (06:15)
[2020-12-28] MEDS: Midazolam HCl 100 MG in Premix Bag 1 BAG IVPB PRN ×2 (06:41→20:22)
[2020-12-28] MEDS: Budesonide 0.5 MG/2 ML NEB NEB SCH ×2 (07:14→19:50)
[2020-12-28 08:51] LABS: Actual Bicarbonate (HCO3a) 24.8 mEq/L (22-28); Base Excess (BEa) -2.7 mEq/L (-2.0 to +3.0); CO2 Tension 56.9 mmHg (35.0-45.0); Calcium, Ionized (arterial) 1.22 mmol/L (1.12-1.30); Carboxyhemoglobin (COHb) 0.6 gm% (0.0-3.0); Hemoglobin (Hb) 9.8 g/dL (14.0-18.0); O2 Tension (PaO2), arterial 63.1 mmHg (80.0-100.0); Potassium - ABG Lab 3.2 mmol/L (3.70-5.30); Puncture Site LRA; pH, Arterial 7.26 (7.35-7.45)
[2020-12-28 08:55] LABS: ALV-art Gradient 436.175 mmHg (0-20)
[2020-12-28] MEDS: Dexamethasone 4 mg/ml Vial SLOW IVP SCH (09:02)
[2020-12-28] MEDS: Ascorbic Acid 500 mg Chewable Tablet PO SCH (09:02)
[2020-12-28] MEDS: Pantoprazole 40 MG VIAL IVP SCH ×2 (09:02→20:21)
[2020-12-28] MEDS: Cholecalciferol (Vitamin D3) 400 UNITS TAB PO SCH (09:02)
[2020-12-28] MEDS: Heparin 5,000 UNITS/ML VIAL SC SCH ×3 (09:02→20:22)
[2020-12-28] MEDS: Zinc Sulfate 220 MG CAP PO SCH (09:02)
[2020-12-28] MEDS: Thiamine 100 MG TAB PO SCH (09:02)
[2020-12-28] MEDS: Polyethylene Glycol 3350 17 GM Packet PER TUBE SCH (09:03)
[2020-12-28] MEDS: Iron, Sodium Ferric Gluconate 125 MG in Sodium Chloride 0.9% 100 ML IVPB SCH (12:33)
[2020-12-28] MEDS: oxyCODONE 5 MG TAB PO SCH ×4 (12:34→23:53)
[2020-12-28] MEDS: clonazePAM 1 MG TAB PO SCH ×2 (15:38→20:21)
[2020-12-28] MEDS: Fluconazole In NaCl,Iso-Osm 200 MG in Premix Bag 1 BAG IVPB SCH (15:39)
[2020-12-29] MEDS: oxyCODONE 5 MG TAB PO SCH ×5 (04:32→22:03)
[2020-12-29 05:04] LABS: Hemoglobin 8.2 g/dL (13.5-17.5); Mean Corpuscular HGB CONC 33.1 g/dL (32.0-36.0); Mean Corpuscular Hemoglobin 29.5 pg (27.0-33.0); Mean Corpuscular Volume 89.2 fl (81.2-95.1); Mean Platelet Volume 9.8 fl (7.4-10.4); Platelet Count 241 10x3/uL (150-450); RBC Distribution Width 14.5 % (11.5-14.5); Red Blood Cell (RBC) Count 2.78 10x6/uL (4.32-5.72); White Blood Cell (WBC) Count 10.5 10x3/uL (3.5-10.5)
[2020-12-29 05:14] LABS: Anion Gap 18 mmol/L (10-20)
[2020-12-29 05:19] LABS: Albumin 3.7 g/dL (3.5-5.0); BUN (Urea Nitrogen) 79 mg/dL (8.4-25.7); BUN/Creatinine Ratio 12.95; Calc. Creatinine Clearance 25 mL/min (70-130); Calcium 9.3 mg/dL (7.8-10.44); Carbon Dioxide 23 mmol/L (22-29); Chloride 100 mmol/L (98-107); Glucose 95 mg/dL (70-105); Phosphorus 5.9 mg/dL (2.3-4.7); Potassium 3.8 mmol/L (3.5-5.1); Sodium 137 mmol/L (136-145)
[2020-12-29] MEDS: Budesonide 0.5 MG/2 ML NEB NEB SCH ×2 (07:19→19:16)
[2020-12-29] MEDS: Ascorbic Acid 500 mg Chewable Tablet PO SCH (09:10)
[2020-12-29] MEDS: Heparin 5,000 UNITS/ML VIAL SC SCH ×3 (09:11→22:03)
[2020-12-29] MEDS: Cholecalciferol (Vitamin D3) 400 UNITS TAB PO SCH (09:12)
[2020-12-29] MEDS: clonazePAM 1 MG TAB PO SCH ×3 (09:13→22:03)
[2020-12-29] MEDS: Dexamethasone 4 mg/ml Vial SLOW IVP SCH (09:13)
[2020-12-29] MEDS: Pantoprazole 40 MG VIAL IVP SCH ×2 (09:14→22:03)
[2020-12-29] MEDS: Thiamine 100 MG TAB PO SCH (09:14)
[2020-12-29] MEDS: Polyethylene Glycol 3350 17 GM Packet PER TUBE SCH (09:15)
[2020-12-29] MEDS: Zinc Sulfate 220 MG CAP PO SCH (09:16)
[2020-12-29] MEDS ORDERED: Albumin 25% 25 GM/100 ML BOT IVPB PRN (09:27)
[2020-12-29] MEDS ORDERED: Sterile Water 10 ML VIAL FS SCH (11:00)
[2020-12-29] MEDS ORDERED: Activase 2 MG VIAL CATH SCH (11:00)
[2020-12-29] MEDS: Fentanyl CADD 100 ML IV SCH ×2 (11:30→19:45)
[2020-12-29] MEDS: Midazolam HCl 100 MG in Premix Bag 1 BAG IVPB PRN (11:30)
[2020-12-29] MEDS ORDERED: Vecuronium 10 MG VIAL IV PRN (11:33)
[2020-12-29] MEDS: Fluconazole In NaCl,Iso-Osm 200 MG in Premix Bag 1 BAG IVPB SCH (14:29)
[2020-12-29] MEDS: EPOETIN ALFA-EPBX (ESRD) 2,000 UNIT/ML VIAL SC SCH (14:30)
[2020-12-29] MEDS: EPOETIN ALFA-EPBX (ESRD) 3,000 UNIT/ML VIAL SC SCH (14:31)
[2020-12-29] MEDS: Iron, Sodium Ferric Gluconate 125 MG in Sodium Chloride 0.9% 100 ML IVPB SCH (14:34)
[2020-12-30] MEDS: oxyCODONE 5 MG TAB PO SCH ×7 (00:18→23:38)
[2020-12-30] MEDS: Midazolam HCl 100 MG in Premix Bag 1 BAG IVPB PRN ×2 (00:41→17:14)
[2020-12-30 04:50] LABS: Mean Corpuscular HGB CONC 32.5 g/dL (32.0-36.0); Mean Corpuscular Hemoglobin 29.1 pg (27.0-33.0); Mean Corpuscular Volume 89.5 fl (81.2-95.1); Mean Platelet Volume 10.2 fl (7.4-10.4); Platelet Count 261 10x3/uL (150-450); Red Blood Cell (RBC) Count 2.75 10x6/uL (4.32-5.72); White Blood Cell (WBC) Count 10.7 10x3/uL (3.5-10.5)
[2020-12-30 05:08] LABS: Anion Gap 16 mmol/L (10-20)
[2020-12-30 05:16] LABS: ALV-art Gradient 373.475 mmHg (0-20); Actual Bicarbonate (HCO3a) 25.7 mEq/L (22-28); Base Excess (BEa) -0.8 mEq/L (-2.0 to +3.0); CO2 Tension 52.9 mmHg (35.0-45.0); Calcium, Ionized (arterial) 1.26 mmol/L (1.12-1.30); Carboxyhemoglobin (COHb) 0.9 gm% (0.0-3.0); Hemoglobin (Hb) 8.5 g/dL (14.0-18.0); O2 Tension (PaO2), arterial 59.5 mmHg (80.0-100.0); Potassium - ABG Lab 3.6 mmol/L (3.70-5.30); Puncture Site RRA; pH, Arterial 7.31 (7.35-7.45)
[2020-12-30 05:17] LABS: Albumin 4.1 g/dL (3.5-5.0); BUN (Urea Nitrogen) 55 mg/dL (8.4-25.7); BUN/Creatinine Ratio 12.59; Calc. Creatinine Clearance 35 mL/min (70-130); Calcium 9.5 mg/dL (7.8-10.44); Carbon Dioxide 27 mmol/L (22-29); Chloride 98 mmol/L (98-107); Glucose 85 mg/dL (70-105); Phosphorus 3.7 mg/dL (2.3-4.7); Potassium 3.9 mmol/L (3.5-5.1); Sodium 137 mmol/L (136-145)
[2020-12-30] MEDS: Budesonide 0.5 MG/2 ML NEB NEB SCH ×2 (07:24→19:50)
[2020-12-30] MEDS: Albuterol Sulfate 2.5 mg/3 ml Neb NEB PRN (07:25)
[2020-12-30] MEDS: Ascorbic Acid 500 mg Chewable Tablet PO SCH (07:59)
[2020-12-30] MEDS: Cholecalciferol (Vitamin D3) 400 UNITS TAB PO SCH (08:03)
[2020-12-30] MEDS: Zinc Sulfate 220 MG CAP PO SCH (08:04)
[2020-12-30] MEDS: clonazePAM 1 MG TAB PO SCH ×3 (08:05→20:01)
[2020-12-30] MEDS: Dexamethasone 4 mg/ml Vial SLOW IVP SCH (08:06)
[2020-12-30] MEDS: Heparin 5,000 UNITS/ML VIAL SC SCH ×3 (08:06→20:01)
[2020-12-30] MEDS: Pantoprazole 40 MG VIAL IVP SCH ×2 (08:07→20:01)
[2020-12-30] MEDS: Polyethylene Glycol 3350 17 GM Packet PER TUBE SCH (08:08)
[2020-12-30] MEDS: Thiamine 100 MG TAB PO SCH (08:09)
[2020-12-30] MEDS: Fentanyl CADD 100 ML IV SCH ×2 (10:00→20:46)
[2020-12-30] MEDS ORDERED: Heparin 10,000 UNITS/ 10 ML VIAL CATH PRN (11:42)
[2020-12-30] MEDS: Iron, Sodium Ferric Gluconate 125 MG in Sodium Chloride 0.9% 100 ML IVPB SCH (12:50)
[2020-12-30] MEDS: Fluconazole In NaCl,Iso-Osm 200 MG in Premix Bag 1 BAG IVPB SCH (14:33)
[2020-12-30] MEDS: Scopolamine 1.5 mg/72 hour Patch TD SCH (17:15)
[2020-12-31] MEDS: oxyCODONE 5 MG TAB PO SCH ×6 (03:49→23:37)
[2020-12-31] MEDS: Midazolam HCl 100 MG in Premix Bag 1 BAG IVPB PRN ×2 (04:28→20:20)
[2020-12-31 07:13] LABS: Hemoglobin 8.6 g/dL (13.5-17.5); Mean Corpuscular HGB CONC 32.2 g/dL (32.0-36.0); Mean Corpuscular Hemoglobin 29.5 pg (27.0-33.0); Mean Corpuscular Volume 91.4 fl (81.2-95.1); Mean Platelet Volume 9.5 fl (7.4-10.4); Platelet Count 285 10x3/uL (150-450); RBC Distribution Width 15.5 % (11.5-14.5); Red Blood Cell (RBC) Count 2.92 10x6/uL (4.32-5.72); White Blood Cell (WBC) Count 13.7 10x3/uL (3.5-10.5)
[2020-12-31 07:18] LABS: Albumin 4.1 g/dL (3.5-5.0); Anion Gap 16 mmol/L (10-20); BUN (Urea Nitrogen) 59 mg/dL (8.4-25.7); BUN/Creatinine Ratio 13.35; Calc. Creatinine Clearance 35 mL/min (70-130); Calcium 9.8 mg/dL (7.8-10.44); Carbon Dioxide 27 mmol/L (22-29); Chloride 97 mmol/L (98-107); Glucose 91 mg/dL (70-105); Phosphorus 3.2 mg/dL (2.3-4.7); Potassium 4.5 mmol/L (3.5-5.1); Sodium 135 mmol/L (136-145)
[2020-12-31] MEDS: Albuterol Sulfate 2.5 mg/3 ml Neb NEB PRN (07:39)
[2020-12-31] MEDS: Budesonide 0.5 MG/2 ML NEB NEB SCH ×2 (07:39→19:25)
[2020-12-31] MEDS: Polyethylene Glycol 3350 17 GM Packet PER TUBE SCH (08:02)
[2020-12-31] MEDS: Pantoprazole 40 MG VIAL IVP SCH ×2 (08:21→20:21)
[2020-12-31] MEDS: Ascorbic Acid 500 mg Chewable Tablet PO SCH (08:22)
[2020-12-31] MEDS: Heparin 5,000 UNITS/ML VIAL SC SCH ×3 (08:22→20:21)
[2020-12-31] MEDS: clonazePAM 1 MG TAB PO SCH ×3 (08:22→20:20)
[2020-12-31] MEDS: Dexamethasone 4 mg/ml Vial SLOW IVP SCH (08:22)
[2020-12-31] MEDS: Cholecalciferol (Vitamin D3) 400 UNITS TAB PO SCH (08:22)
[2020-12-31] MEDS: Zinc Sulfate 220 MG CAP PO SCH (08:22)
[2020-12-31] MEDS: Thiamine 100 MG TAB PO SCH (08:22)
[2020-12-31] MEDS: EPOETIN ALFA-EPBX (ESRD) 3,000 UNIT/ML VIAL SC SCH (13:44)
[2020-12-31] MEDS: EPOETIN ALFA-EPBX (ESRD) 2,000 UNIT/ML VIAL SC SCH (13:44)
[2020-12-31] MEDS: Fentanyl CADD 100 ML IV SCH (13:53)
[2020-12-31] MEDS: Fluconazole In NaCl,Iso-Osm 200 MG in Premix Bag 1 BAG IVPB SCH (14:10)
[2021-01-01] MEDS: Fentanyl CADD 100 ML IV SCH ×2 (02:43→20:48)
[2021-01-01] MEDS: oxyCODONE 5 MG TAB PO SCH ×5 (04:00→20:47)
[2021-01-01] MEDS: Budesonide 0.5 MG/2 ML NEB NEB SCH ×2 (07:20→19:12)
[2021-01-01] MEDS: Ascorbic Acid 500 mg Chewable Tablet PO SCH (08:15)
[2021-01-01] MEDS: Cholecalciferol (Vitamin D3) 400 UNITS TAB PO SCH (08:15)
[2021-01-01] MEDS: Polyethylene Glycol 3350 17 GM Packet PER TUBE SCH (08:16)
[2021-01-01] MEDS: Dexamethasone 4 mg/ml Vial SLOW IVP SCH (08:16)
[2021-01-01] MEDS: clonazePAM 1 MG TAB PO SCH ×3 (08:16→20:47)
[2021-01-01] MEDS: Pantoprazole 40 MG VIAL IVP SCH ×2 (08:16→20:48)
[2021-01-01] MEDS: Heparin 5,000 UNITS/ML VIAL SC SCH ×3 (08:16→20:48)
[2021-01-01] MEDS: Zinc Sulfate 220 MG CAP PO SCH (08:17)
[2021-01-01] MEDS: Thiamine 100 MG TAB PO SCH (08:17)
[2021-01-01] MEDS ORDERED: Heparin 10,000 UNITS/ 10 ML VIAL SLOW IVP PRN ×2 (10:28→10:30)
[2021-01-01] MEDS ORDERED: Heparin 5,000 UNITS/ML VIAL CATH PRN (11:45)
[2021-01-01] MEDS: Midazolam HCl 100 MG in Premix Bag 1 BAG IVPB PRN (12:37)
[2021-01-01] MEDS: Fluconazole In NaCl,Iso-Osm 200 MG in Premix Bag 1 BAG IVPB SCH (14:59)
[2021-01-01] MEDS ORDERED: Fentanyl BOLUS 250 ML IVPB PRN (20:38)
[2021-01-02] MEDS: oxyCODONE 5 MG TAB PO SCH ×6 (03:38→20:40)
[2021-01-02 04:12] LABS: #Basophils 0.1 10x3/uL (0.0-0.2); #Eosinphils 0.8 10x3/uL (0.0-0.5); #Monocytes 1.7 10x3/uL (0.0-1.1); #Neutrophils 12.2 10x3/uL (1.5-8.4); %Basophils 0.8 % (0.0-2.0); %Eosinophils 4.9 % (0.0-6.0); %Lymphocytes 10.5 % (18.0-47.0); %Monocytes 10.1 % (0.0-10.0); %Neutrophils 71.8 % (40.0-75.0); Hemoglobin 9.6 g/dL (13.5-17.5); Mean Corpuscular HGB CONC 32.5 g/dL (32.0-36.0); Mean Corpuscular Hemoglobin 29.6 pg (27.0-33.0); Mean Platelet Volume 9.5 fl (7.4-10.4); Platelet Count 275 10x3/uL (150-450); Red Blood Cell (RBC) Count 3.24 10x6/uL (4.32-5.72)
[2021-01-02] MEDS: Midazolam HCl 100 MG in Premix Bag 1 BAG IVPB PRN (04:28)
[2021-01-02 04:30] LABS: Anion Gap 18 mmol/L (10-20); BUN (Urea Nitrogen) 69 mg/dL (8.4-25.7); Calc. Creatinine Clearance 32 mL/min (70-130); Carbon Dioxide 28 mmol/L (22-29); Chloride 92 mmol/L (98-107); Glucose 99 mg/dL (70-105); Potassium 3.9 mmol/L (3.5-5.1); Sodium 134 mmol/L (136-145)
[2021-01-02] MEDS: Budesonide 0.5 MG/2 ML NEB NEB SCH ×2 (07:49→19:32)
[2021-01-02 08:45] LABS: Actual Bicarbonate (HCO3a) 25.5 mEq/L (22-28); Base Excess (BEa) -0.5 mEq/L (-2.0 to +3.0); Calcium, Ionized (arterial) 1.27 mmol/L (1.12-1.30); Carboxyhemoglobin (COHb) 0.9 gm% (0.0-3.0); Hemoglobin (Hb) 10.8 g/dL (14.0-18.0); O2 Tension (PaO2), arterial 50.7 mmHg (80.0-100.0); Potassium - ABG Lab 4.1 mmol/L (3.70-5.30); Puncture Site RRA; RapidComm Collect By EA; pH, Arterial 7.34 (7.35-7.45)
[2021-01-02] MEDS: Pantoprazole 40 MG VIAL IVP SCH ×2 (09:27→20:41)
[2021-01-02] MEDS: Thiamine 100 MG TAB PO SCH (09:27)
[2021-01-02] MEDS: Cholecalciferol (Vitamin D3) 400 UNITS TAB PO SCH (09:27)
[2021-01-02] MEDS: clonazePAM 1 MG TAB PO SCH ×3 (09:27→20:41)
[2021-01-02] MEDS: Zinc Sulfate 220 MG CAP PO SCH (09:27)
[2021-01-02] MEDS: Heparin 5,000 UNITS/ML VIAL SC SCH ×3 (09:27→20:41)
[2021-01-02] MEDS: Dexamethasone 4 mg/ml Vial SLOW IVP SCH (09:27)
[2021-01-02] MEDS: Ascorbic Acid 500 mg Chewable Tablet PO SCH (09:27)
[2021-01-02] MEDS: Polyethylene Glycol 3350 17 GM Packet PER TUBE SCH (11:42)
[2021-01-02] MEDS: Fluconazole In NaCl,Iso-Osm 200 MG in Premix Bag 1 BAG IVPB SCH (11:43)
[2021-01-02] MEDS: Scopolamine 1.5 mg/72 hour Patch TD SCH (16:49)
[2021-01-03] MEDS: oxyCODONE 5 MG TAB PO SCH ×5 (00:07→21:33)
[2021-01-03] MEDS: Midazolam HCl 100 MG in Premix Bag 1 BAG IVPB PRN (04:06)
[2021-01-03] MEDS: Fentanyl CADD 100 ML IV SCH ×2 (04:06→18:05)
[2021-01-03] MEDS: Budesonide 0.5 MG/2 ML NEB NEB SCH ×2 (07:34→19:45)
[2021-01-03] MEDS: Cholecalciferol (Vitamin D3) 400 UNITS TAB PO SCH (08:45)
[2021-01-03] MEDS: Ascorbic Acid 500 mg Chewable Tablet PO SCH (08:45)
[2021-01-03] MEDS: Heparin 5,000 UNITS/ML VIAL SC SCH ×3 (08:46→21:00)
[2021-01-03] MEDS: Dexamethasone 4 mg/ml Vial SLOW IVP SCH (08:46)
[2021-01-03] MEDS: Zinc Sulfate 220 MG CAP PO SCH (08:46)
[2021-01-03] MEDS: Thiamine 100 MG TAB PO SCH (08:46)
[2021-01-03] MEDS: clonazePAM 1 MG TAB PO SCH ×3 (08:46→21:33)
[2021-01-03] MEDS: Pantoprazole 40 MG VIAL IVP SCH ×2 (08:46→21:32)
[2021-01-03] MEDS: Polyethylene Glycol 3350 17 GM Packet PER TUBE SCH (08:46)
[2021-01-03] MEDS ORDERED: Albumin 25% 25 GM/100 ML BOT IVPB PRN (15:55)
[2021-01-03] MEDS: Fluconazole In NaCl,Iso-Osm 200 MG in Premix Bag 1 BAG IVPB SCH (16:00)
[2021-01-03] MEDS: EPOETIN ALFA-EPBX (ESRD) 2,000 UNIT/ML VIAL SC SCH (16:15)
[2021-01-03] MEDS: EPOETIN ALFA-EPBX (ESRD) 3,000 UNIT/ML VIAL SC SCH (16:15)
[2021-01-04] MEDS: oxyCODONE 5 MG TAB PO SCH ×7 (00:17→23:53)
[2021-01-04] MEDS: Midazolam HCl 100 MG in Premix Bag 1 BAG IVPB PRN (00:18)
[2021-01-04] MEDS: Fentanyl CADD 100 ML IV SCH (04:46)
[2021-01-04] MEDS ORDERED: Bupivacaine 0.25% HCL 30 ML VIAL ONE (06:32)
[2021-01-04] MEDS ORDERED: EPINEPHrine 1 MG/ML AMP ONE (06:33)
[2021-01-04] MEDS: Budesonide 0.5 MG/2 ML NEB NEB SCH ×2 (07:16→19:41)
[2021-01-04] MEDS ORDERED: CEFAZOLIN 1 GM VIAL ONE (07:40)
[2021-01-04] MEDS: Heparin 5,000 UNITS/ML VIAL SC SCH ×4 (09:50→20:17)
[2021-01-04] MEDS: Pantoprazole 40 MG VIAL IVP SCH ×2 (09:58→20:16)
[2021-01-04] MEDS: Ascorbic Acid 500 mg Chewable Tablet PO SCH (09:58)
[2021-01-04] MEDS: Cholecalciferol (Vitamin D3) 400 UNITS TAB PO SCH (09:58)
[2021-01-04] MEDS: Polyethylene Glycol 3350 17 GM Packet PER TUBE SCH (09:58)
[2021-01-04] MEDS: clonazePAM 1 MG TAB PO SCH ×3 (09:58→20:17)
[2021-01-04] MEDS: Dexamethasone 4 mg/ml Vial SLOW IVP SCH (09:58)
[2021-01-04] MEDS: Zinc Sulfate 220 MG CAP PO SCH (09:59)
[2021-01-04] MEDS: Thiamine 100 MG TAB PO SCH (10:01)
[2021-01-04 10:52] LABS: Hemoglobin 9.2 g/dL (13.5-17.5); Mean Corpuscular HGB CONC 32.2 g/dL (32.0-36.0); Mean Corpuscular Hemoglobin 29.8 pg (27.0-33.0); Mean Corpuscular Volume 92.6 fl (81.2-95.1); Mean Platelet Volume 10.6 fl (7.4-10.4); Platelet Count 267 10x3/uL (150-450); RBC Distribution Width 16.7 % (11.5-14.5); Red Blood Cell (RBC) Count 3.09 10x6/uL (4.32-5.72); White Blood Cell (WBC) Count 14.8 10x3/uL (3.5-10.5)
[2021-01-04 10:59] LABS: Albumin 4.2 g/dL (3.5-5.0); Anion Gap 18 mmol/L (10-20); BUN (Urea Nitrogen) 79 mg/dL (8.4-25.7); BUN/Creatinine Ratio 15.71; Calc. Creatinine Clearance 30 mL/min (70-130); Calcium 9.3 mg/dL (7.8-10.44); Carbon Dioxide 25 mmol/L (22-29); Chloride 95 mmol/L (98-107); Glucose 92 mg/dL (70-105); Phosphorus 6.6 mg/dL (2.3-4.7); Potassium 3.7 mmol/L (3.5-5.1); Sodium 134 mmol/L (136-145)
[2021-01-04 11:11] LABS: Actual Bicarbonate (HCO3a) 24.6 mEq/L (22-28); Base Excess (BEa) -1.8 mEq/L (-2.0 to +3.0); CO2 Tension 49.1 mmHg (35.0-45.0); Calcium, Ionized (arterial) 1.18 mmol/L (1.12-1.30); Carboxyhemoglobin (COHb) 0.7 gm% (0.0-3.0); Hemoglobin (Hb) 10.1 g/dL (14.0-18.0); O2 Tension (PaO2), arterial 75.3 mmHg (80.0-100.0); Potassium - ABG Lab 3.9 mmol/L (3.70-5.30); Puncture Site Right Heel; RapidComm Collect By AR; pH, Arterial 7.32 (7.35-7.45)
[2021-01-04 11:13] LABS: ALV-art Gradient 576.325 mmHg (0-20)
[2021-01-04] MEDS: Fluconazole In NaCl,Iso-Osm 200 MG in Premix Bag 1 BAG IVPB SCH (15:40)
[2021-01-05] MEDS: oxyCODONE 5 MG TAB PO SCH ×5 (04:55→21:16)
[2021-01-05] MEDS: Fentanyl CADD 100 ML IV SCH (05:36)
[2021-01-05] MEDS: Midazolam HCl 100 MG in Premix Bag 1 BAG IVPB PRN (05:37)
[2021-01-05] MEDS: Budesonide 0.5 MG/2 ML NEB NEB SCH ×2 (07:51→18:44)
[2021-01-05] MEDS: Albuterol Sulfate 2.5 mg/3 ml Neb NEB PRN (07:52)
[2021-01-05] MEDS: clonazePAM 1 MG TAB PO SCH ×4 (08:52→20:05)
[2021-01-05] MEDS: Ascorbic Acid 500 mg Chewable Tablet PO SCH (08:52)
[2021-01-05] MEDS: Dexamethasone 4 mg/ml Vial SLOW IVP SCH (08:52)
[2021-01-05] MEDS: Cholecalciferol (Vitamin D3) 400 UNITS TAB PO SCH (08:52)
[2021-01-05] MEDS: Polyethylene Glycol 3350 17 GM Packet PER TUBE SCH (08:53)
[2021-01-05] MEDS: Heparin 5,000 UNITS/ML VIAL SC SCH ×3 (08:53→20:00)
[2021-01-05] MEDS: Thiamine 100 MG TAB PO SCH (08:53)
[2021-01-05] MEDS: Zinc Sulfate 220 MG CAP PO SCH (08:53)
[2021-01-05] MEDS: Pantoprazole 40 MG VIAL IVP SCH ×2 (08:53→20:00)
[2021-01-05 11:16] LABS: ALV-art Gradient 388.875 mmHg (0-20); Actual Bicarbonate (HCO3a) 21.1 mEq/L (22-28); Base Excess (BEa) -4.4 mEq/L (-2.0 to +3.0); CO2 Tension 40.1 mmHg (35.0-45.0); Hemoglobin (Hb) 9.9 g/dL (14.0-18.0); O2 Tension (PaO2), arterial 60.1 mmHg (80.0-100.0); Potassium - ABG Lab 4.7 mmol/L (3.70-5.30); Puncture Site RRA; pH, Arterial 7.34 (7.35-7.45)
[2021-01-05] MEDS: Dexmedetomidine In 0.9 % NaCl 100 ML IVPB SCH ×2 (13:36→20:00)
[2021-01-05] MEDS: EPOETIN ALFA-EPBX (ESRD) 2,000 UNIT/ML VIAL SC SCH (14:02)
[2021-01-05] MEDS: EPOETIN ALFA-EPBX (ESRD) 3,000 UNIT/ML VIAL SC SCH (14:02)
[2021-01-05] MEDS: Scopolamine 1.5 mg/72 hour Patch TD SCH (16:30)
[2021-01-05] MEDS ORDERED: Heparin 10,000 UNITS/ 10 ML VIAL CATH PRN (18:15)
[2021-01-06] MEDS: oxyCODONE 5 MG TAB PO SCH ×7 (00:31→20:14)
[2021-01-06] MEDS ORDERED: Bisacodyl 10 MG SUPP PR SCH (01:30)
[2021-01-06] MEDS: Dexmedetomidine In 0.9 % NaCl 100 ML IVPB SCH ×4 (02:28→20:16)
[2021-01-06 06:57] LABS: Anion Gap 20 mmol/L (10-20)
[2021-01-06 07:01] LABS: Albumin 3.9 g/dL (3.5-5.0); BUN (Urea Nitrogen) 67 mg/dL (8.4-25.7); BUN/Creatinine Ratio 15.44; Calc. Creatinine Clearance 35 mL/min (70-130); Calcium 9.5 mg/dL (7.8-10.44); Carbon Dioxide 25 mmol/L (22-29); Chloride 95 mmol/L (98-107); Glucose 81 mg/dL (70-105); Phosphorus 5.2 mg/dL (2.3-4.7); Potassium 4.1 mmol/L (3.5-5.1); Sodium 136 mmol/L (136-145)
[2021-01-06] MEDS: Budesonide 0.5 MG/2 ML NEB NEB SCH ×2 (07:08→19:05)
[2021-01-06 07:26] LABS: Hemoglobin 9.2 g/dL (13.5-17.5); Mean Corpuscular HGB CONC 32.2 g/dL (32.0-36.0); Mean Corpuscular Hemoglobin 29.7 pg (27.0-33.0); Mean Corpuscular Volume 92.3 fl (81.2-95.1); Mean Platelet Volume 10.2 fl (7.4-10.4); Platelet Count 223 10x3/uL (150-450); RBC Distribution Width 16.7 % (11.5-14.5)
[2021-01-06] MEDS: Ascorbic Acid 500 mg Chewable Tablet PO SCH (08:14)
[2021-01-06] MEDS: Cholecalciferol (Vitamin D3) 400 UNITS TAB PO SCH (08:14)
[2021-01-06] MEDS: Dexamethasone 4 mg/ml Vial SLOW IVP SCH (08:14)
[2021-01-06] MEDS: clonazePAM 1 MG TAB PO SCH ×3 (08:14→20:14)
[2021-01-06] MEDS: Pantoprazole 40 MG VIAL IVP SCH ×2 (08:14→20:14)
[2021-01-06] MEDS: Thiamine 100 MG TAB PO SCH (08:14)
[2021-01-06] MEDS: Zinc Sulfate 220 MG CAP PO SCH (08:14)
[2021-01-06] MEDS: Polyethylene Glycol 3350 17 GM Packet PER TUBE SCH (08:15)
[2021-01-06] MEDS: Heparin 5,000 UNITS/ML VIAL SC SCH ×3 (08:17→20:15)
[2021-01-06] MEDS: Fentanyl CADD 100 ML IV SCH (10:58)
[2021-01-06] MEDS: Fluconazole In NaCl,Iso-Osm 200 MG in Premix Bag 1 BAG IVPB SCH ×2 (14:21→20:14)
[2021-01-06] MEDS ORDERED: Albumin 25% 25 GM/100 ML BOT IVPB PRN (16:49)
[2021-01-07] MEDS: oxyCODONE 5 MG TAB PO SCH ×6 (00:45→20:57)
[2021-01-07] MEDS: Dexmedetomidine In 0.9 % NaCl 100 ML IVPB SCH ×3 (03:53→19:37)
[2021-01-07] MEDS: Budesonide 0.5 MG/2 ML NEB NEB SCH ×2 (06:57→20:05)
[2021-01-07] MEDS: Pantoprazole 40 MG VIAL IVP SCH ×2 (08:31→20:57)
[2021-01-07] MEDS: Dexamethasone 4 mg/ml Vial SLOW IVP SCH (08:31)
[2021-01-07] MEDS: Polyethylene Glycol 3350 17 GM Packet PER TUBE SCH (08:31)
[2021-01-07] MEDS: clonazePAM 1 MG TAB PO SCH ×3 (08:32→20:58)
[2021-01-07] MEDS: Thiamine 100 MG TAB PO SCH (08:33)
[2021-01-07] MEDS: Ascorbic Acid 500 mg Chewable Tablet PO SCH (08:33)
[2021-01-07] MEDS: Zinc Sulfate 220 MG CAP PO SCH (08:33)
[2021-01-07] MEDS: Cholecalciferol (Vitamin D3) 400 UNITS TAB PO SCH (08:33)
[2021-01-07] MEDS: Heparin 5,000 UNITS/ML VIAL SC SCH ×3 (09:57→20:58)
[2021-01-07] MEDS: EPOETIN ALFA-EPBX (ESRD) 3,000 UNIT/ML VIAL SC SCH (14:00)
[2021-01-07] MEDS: EPOETIN ALFA-EPBX (ESRD) 2,000 UNIT/ML VIAL SC SCH (14:00)
[2021-01-07] MEDS: Fluconazole In NaCl,Iso-Osm 200 MG in Premix Bag 1 BAG IVPB SCH (16:38)
[2021-01-07] MEDS ORDERED: Metoclopramide HCl 10 MG/2 ML VIAL IVP SCH ×2 (20:45→22:00)
[2021-01-08] MEDS: oxyCODONE 5 MG TAB PO SCH ×6 (00:04→22:27)
[2021-01-08] MEDS: Dexmedetomidine In 0.9 % NaCl 100 ML IVPB SCH ×4 (02:07→19:48)
[2021-01-08 04:31] LABS: Actual Bicarbonate (HCO3a) 23.1 mEq/L (22-28); Base Excess (BEa) -1.2 mEq/L (-2.0 to +3.0); CO2 Tension 36.8 mmHg (35.0-45.0); Calcium, Ionized (arterial) 1.21 mmol/L (1.12-1.30); Carboxyhemoglobin (COHb) 0.6 gm% (0.0-3.0); Hemoglobin (Hb) 11.1 g/dL (14.0-18.0); O2 Tension (PaO2), arterial 59.8 mmHg (80.0-100.0); Potassium - ABG Lab 3.9 mmol/L (3.70-5.30); Puncture Site LRA; pH, Arterial 7.42 (7.35-7.45)
[2021-01-08] MEDS: Budesonide 0.5 MG/2 ML NEB NEB SCH ×2 (07:25→19:35)
[2021-01-08] MEDS: Heparin 5,000 UNITS/ML VIAL SC SCH ×3 (08:21→22:30)
[2021-01-08] MEDS: Polyethylene Glycol 3350 17 GM Packet PER TUBE SCH (08:21)
[2021-01-08] MEDS: Dexamethasone 4 mg/ml Vial SLOW IVP SCH (08:21)
[2021-01-08] MEDS: clonazePAM 1 MG TAB PO SCH ×3 (08:22→22:28)
[2021-01-08] MEDS: Pantoprazole 40 MG VIAL IVP SCH ×2 (08:22→21:11)
[2021-01-08] MEDS: Zinc Sulfate 220 MG CAP PO SCH (08:22)
[2021-01-08] MEDS: Cholecalciferol (Vitamin D3) 400 UNITS TAB PO SCH (08:23)
[2021-01-08] MEDS: Thiamine 100 MG TAB PO SCH (08:23)
[2021-01-08] MEDS: Ascorbic Acid 500 mg Chewable Tablet PO SCH (08:23)
[2021-01-08 09:25] LABS: Mean Corpuscular HGB CONC 32.7 g/dL (32.0-36.0); Mean Corpuscular Hemoglobin 29.5 pg (27.0-33.0); Mean Corpuscular Volume 90.1 fl (81.2-95.1); Mean Platelet Volume 10.2 fl (7.4-10.4); Platelet Count 271 10x3/uL (150-450); RBC Distribution Width 16.3 % (11.5-14.5); Red Blood Cell (RBC) Count 3.73 10x6/uL (4.32-5.72); White Blood Cell (WBC) Count 13.5 10x3/uL (3.5-10.5)
[2021-01-08 09:39] LABS: Albumin 4.4 g/dL (3.5-5.0); Anion Gap 26 mmol/L (10-20); BUN (Urea Nitrogen) 78 mg/dL (8.4-25.7); Calc. Creatinine Clearance 30 mL/min (70-130); Calcium 10.6 mg/dL (7.8-10.44); Carbon Dioxide 22 mmol/L (22-29); Chloride 94 mmol/L (98-107); Glucose 96 mg/dL (70-105); Phosphorus 5.9 mg/dL (2.3-4.7); Potassium 3.5 mmol/L (3.5-5.1); Sodium 138 mmol/L (136-145)
[2021-01-08] MEDS: Metoclopramide HCl 10 MG/2 ML VIAL IVP SCH ×3 (10:46→21:10)
[2021-01-08] MEDS: Scopolamine 1.5 mg/72 hour Patch TD SCH (16:44)
[2021-01-08] MEDS: Fentanyl CADD 100 ML IV SCH (19:48)
[2021-01-09] MEDS: oxyCODONE 5 MG TAB PO SCH ×6 (00:19→21:48)
[2021-01-09] MEDS: Dexmedetomidine In 0.9 % NaCl 100 ML IVPB SCH ×2 (03:17→09:16)
[2021-01-09] MEDS: Metoclopramide HCl 10 MG/2 ML VIAL IVP SCH ×3 (05:07→21:50)
[2021-01-09 07:25] LABS: #Basophils 0.1 10x3/uL (0.0-0.2); #Eosinphils 0.7 10x3/uL (0.0-0.5); #Monocytes 1.3 10x3/uL (0.0-1.1); #Neutrophils 9.8 10x3/uL (1.5-8.4); %Basophils 0.8 % (0.0-2.0); %Eosinophils 5.2 % (0.0-6.0); %Lymphocytes 9.3 % (18.0-47.0); %Monocytes 10.1 % (0.0-10.0); Hemoglobin 10.8 g/dL (13.5-17.5); Mean Corpuscular HGB CONC 32.5 g/dL (32.0-36.0); Mean Corpuscular Hemoglobin 29.3 pg (27.0-33.0); Mean Platelet Volume 10.3 fl (7.4-10.4); Platelet Count 244 10x3/uL (150-450); Red Blood Cell (RBC) Count 3.69 10x6/uL (4.32-5.72); White Blood Cell (WBC) Count 13.3 10x3/uL (3.5-10.5)
[2021-01-09 07:53] LABS: Anion Gap 20 mmol/L (10-20); BUN (Urea Nitrogen) 33 mg/dL (8.4-25.7); CRP (Inflammatory) 6.64 mg/dL (= or < 0.5); Calc. Creatinine Clearance 51 mL/min (70-130); Calcium 10.1 mg/dL (7.8-10.44); Carbon Dioxide 25 mmol/L (22-29); Chloride 96 mmol/L (98-107); Glucose 87 mg/dL (70-105); Potassium 3.6 mmol/L (3.5-5.1); Sodium 137 mmol/L (136-145)
[2021-01-09] MEDS: Budesonide 0.5 MG/2 ML NEB NEB SCH ×2 (07:53→18:50)
[2021-01-09] MEDS: Zinc Sulfate 220 MG CAP PO SCH (08:29)
[2021-01-09] MEDS: Heparin 5,000 UNITS/ML VIAL SC SCH ×3 (08:30→21:49)
[2021-01-09] MEDS: Dexamethasone 4 mg/ml Vial SLOW IVP SCH (08:30)
[2021-01-09] MEDS: clonazePAM 1 MG TAB PO SCH ×3 (08:30→21:49)
[2021-01-09] MEDS: Polyethylene Glycol 3350 17 GM Packet PER TUBE SCH (08:30)
[2021-01-09] MEDS: Ascorbic Acid 500 mg Chewable Tablet PO SCH (08:30)
[2021-01-09] MEDS: Pantoprazole 40 MG VIAL IVP SCH ×2 (08:30→21:49)
[2021-01-09] MEDS: Thiamine 100 MG TAB PO SCH (08:30)
[2021-01-09] MEDS: Cholecalciferol (Vitamin D3) 400 UNITS TAB PO SCH (08:30)
[2021-01-10] MEDS: oxyCODONE 5 MG TAB PO SCH ×6 (00:35→21:55)
[2021-01-10] MEDS: Dexmedetomidine In 0.9 % NaCl 100 ML IVPB SCH (04:36)
[2021-01-10] MEDS: Metoclopramide HCl 10 MG/2 ML VIAL IVP SCH ×3 (05:52→21:56)
[2021-01-10] MEDS: Budesonide 0.5 MG/2 ML NEB NEB SCH ×2 (07:17→19:20)
[2021-01-10 08:07] LABS: #Basophils 0.1 10x3/uL (0.0-0.2); #Eosinphils 1.2 10x3/uL (0.0-0.5); %Basophils 1.2 % (0.0-2.0); %Lymphocytes 12.3 % (18.0-47.0); %Monocytes 9.2 % (0.0-10.0); %Neutrophils 65.7 % (40.0-75.0); Hemoglobin 10.3 g/dL (13.5-17.5); Mean Corpuscular Hemoglobin 29.3 pg (27.0-33.0); Mean Corpuscular Volume 91.7 fl (81.2-95.1); Platelet Count 230 10x3/uL (150-450); Red Blood Cell (RBC) Count 3.51 10x6/uL (4.32-5.72); White Blood Cell (WBC) Count 10.7 10x3/uL (3.5-10.5)
[2021-01-10] MEDS: Ascorbic Acid 500 mg Chewable Tablet PO SCH (08:14)
[2021-01-10] MEDS: clonazePAM 1 MG TAB PO SCH ×3 (08:14→21:56)
[2021-01-10] MEDS: Polyethylene Glycol 3350 17 GM Packet PER TUBE SCH (08:15)
[2021-01-10] MEDS: Dexamethasone 4 mg/ml Vial SLOW IVP SCH (08:15)
[2021-01-10] MEDS: Pantoprazole 40 MG VIAL IVP SCH ×2 (08:15→21:55)
[2021-01-10] MEDS: Thiamine 100 MG TAB PO SCH (08:15)
[2021-01-10] MEDS: Heparin 5,000 UNITS/ML VIAL SC SCH ×3 (08:15→21:55)
[2021-01-10] MEDS: Zinc Sulfate 220 MG CAP PO SCH (08:16)
[2021-01-10 08:38] LABS: Anion Gap 20 mmol/L (10-20)
[2021-01-10 08:41] LABS: Albumin 3.8 g/dL (3.5-5.0); BUN (Urea Nitrogen) 64 mg/dL (8.4-25.7); BUN/Creatinine Ratio 14.19; Calc. Creatinine Clearance 33 mL/min (70-130); Calcium 10.2 mg/dL (7.8-10.44); Carbon Dioxide 27 mmol/L (22-29); Chloride 95 mmol/L (98-107); Glucose 81 mg/dL (70-105); Phosphorus 5.7 mg/dL (2.3-4.7); Potassium 3.3 mmol/L (3.5-5.1); Sodium 139 mmol/L (136-145)
[2021-01-10] MEDS: EPOETIN ALFA-EPBX (ESRD) 3,000 UNIT/ML VIAL SC SCH (12:27)
[2021-01-10] MEDS: Sevelamer Carbonate 800 MG TAB PER TUBE SCH ×2 (12:27→17:45)
[2021-01-11] MEDS: oxyCODONE 5 MG TAB PO SCH ×5 (00:39→22:01)
[2021-01-11] MEDS: Sevelamer Carbonate 800 MG TAB PER TUBE SCH ×3 (02:00→17:02)
[2021-01-11] MEDS: clonazePAM 1 MG TAB PO SCH ×2 (05:30→15:30)
[2021-01-11] MEDS: Budesonide 0.5 MG/2 ML NEB NEB SCH ×2 (07:11→19:37)
[2021-01-11 07:44] LABS: #Basophils 0.1 10x3/uL (0.0-0.2); #Eosinphils 0.9 10x3/uL (0.0-0.5); #Monocytes 1.2 10x3/uL (0.0-1.1); %Basophils 0.8 % (0.0-2.0); %Eosinophils 7.9 % (0.0-6.0); %Lymphocytes 9.6 % (18.0-47.0); %Monocytes 10.6 % (0.0-10.0); %Neutrophils 70.7 % (40.0-75.0); Hemoglobin 10.4 g/dL (13.5-17.5); Mean Corpuscular HGB CONC 32.4 g/dL (32.0-36.0); Mean Corpuscular Hemoglobin 29.3 pg (27.0-33.0); Mean Corpuscular Volume 90.4 fl (81.2-95.1); Mean Platelet Volume 10.7 fl (7.4-10.4); Platelet Count 242 10x3/uL (150-450); RBC Distribution Width 15.5 % (11.5-14.5); Red Blood Cell (RBC) Count 3.55 10x6/uL (4.32-5.72); White Blood Cell (WBC) Count 11.3 10x3/uL (3.5-10.5)
[2021-01-11] MEDS: Polyethylene Glycol 3350 17 GM Packet PER TUBE SCH (08:25)
[2021-01-11] MEDS: Metoclopramide HCl 10 MG/2 ML VIAL IVP SCH ×3 (08:31→22:00)
[2021-01-11] MEDS: Ascorbic Acid 500 mg Chewable Tablet PO SCH (08:31)
[2021-01-11] MEDS: Dexamethasone 4 mg/ml Vial SLOW IVP SCH (08:31)
[2021-01-11] MEDS: Pantoprazole 40 MG VIAL IVP SCH ×2 (08:32→20:29)
[2021-01-11] MEDS: Heparin 5,000 UNITS/ML VIAL SC SCH ×3 (08:32→20:28)
[2021-01-11] MEDS: Thiamine 100 MG TAB PO SCH (08:33)
[2021-01-11] MEDS: Zinc Sulfate 220 MG CAP PO SCH (08:33)
[2021-01-11 08:56] LABS: ALT (SGPT) 9 U/L (8-55); AST (SGOT) 16 U/L (5-34); Alkaline Phosphatase 81 U/L (40-110); Anion Gap 23 mmol/L (10-20); BUN (Urea Nitrogen) 84 mg/dL (8.4-25.7); CRP (Inflammatory) 3.91 mg/dL (= or < 0.5); Calc. Creatinine Clearance 28 mL/min (70-130); Carbon Dioxide 23 mmol/L (22-29); Chloride 93 mmol/L (98-107); Globulin 3.3 g/dL (2.4-3.5); Glucose 91 mg/dL (70-105); Potassium 3.3 mmol/L (3.5-5.1); Protein, Total 7.3 g/dL (6.0-8.3); Sodium 136 mmol/L (136-145)
[2021-01-11 09:06] LABS: Bilirubin, Total 0.5 mg/dL (0.2-1.2)
[2021-01-11] MEDS ORDERED: oxyCODONE 5 MG TAB PO SCH (14:30)
[2021-01-11] MEDS: Scopolamine 1.5 mg/72 hour Patch TD SCH (16:10)
[2021-01-12] MEDS: clonazePAM 1 MG TAB PO SCH ×4 (01:35→21:26)
[2021-01-12] MEDS: Sevelamer Carbonate 800 MG TAB PER TUBE SCH ×3 (01:36→20:05)
[2021-01-12 05:00] LABS: #Basophils 0.2 10x3/uL (0.0-0.2); #Eosinphils 1.2 10x3/uL (0.0-0.5); #Monocytes 0.9 10x3/uL (0.0-1.1); #Neutrophils 5.6 10x3/uL (1.5-8.4); %Basophils 1.6 % (0.0-2.0); %Eosinophils 12.4 % (0.0-6.0); %Lymphocytes 15.1 % (18.0-47.0); %Monocytes 9.3 % (0.0-10.0); %Neutrophils 60.8 % (40.0-75.0); Hemoglobin 11.4 g/dL (13.5-17.5); Mean Corpuscular HGB CONC 31.5 g/dL (32.0-36.0); Mean Corpuscular Hemoglobin 28.9 pg (27.0-33.0); Mean Corpuscular Volume 91.9 fl (81.2-95.1); Mean Platelet Volume 10.4 fl (7.4-10.4); Platelet Count 234 10x3/uL (150-450); RBC Distribution Width 16.1 % (11.5-14.5); Red Blood Cell (RBC) Count 3.94 10x6/uL (4.32-5.72); White Blood Cell (WBC) Count 9.3 10x3/uL (3.5-10.5)
[2021-01-12 05:07] LABS: Iron 68 ug/dL (65-175); Iron Binding Capacity, Total 171 mcg/dL (261-462)
[2021-01-12 05:11] LABS: ALT (SGPT) 11 U/L (8-55); AST (SGOT) 18 U/L (5-34); Albumin 3.9 g/dL (3.5-5.0); Alkaline Phosphatase 81 U/L (40-110); Anion Gap 20 mmol/L (10-20); BUN (Urea Nitrogen) 35 mg/dL (8.4-25.7); Bilirubin, Total 0.6 mg/dL (0.2-1.2); Calc. Creatinine Clearance 43 mL/min (70-130); Calcium 9.9 mg/dL (7.8-10.44); Carbon Dioxide 25 mmol/L (22-29); Chloride 96 mmol/L (98-107); Globulin 3.6 g/dL (2.4-3.5); Glucose 112 mg/dL (70-105); Potassium 3.5 mmol/L (3.5-5.1); Protein, Total 7.5 g/dL (6.0-8.3); Sodium 137 mmol/L (136-145)
[2021-01-12] MEDS: oxyCODONE 5 MG TAB PO SCH ×3 (06:27→17:06)
[2021-01-12] MEDS: Metoclopramide HCl 10 MG/2 ML VIAL IVP SCH ×3 (06:28→21:26)
[2021-01-12] MEDS: Budesonide 0.5 MG/2 ML NEB NEB SCH ×2 (07:24→19:23)
[2021-01-12] MEDS: Ascorbic Acid 500 mg Chewable Tablet PO SCH (08:31)
[2021-01-12] MEDS: Dexamethasone 4 mg/ml Vial SLOW IVP SCH (08:32)
[2021-01-12] MEDS: Heparin 5,000 UNITS/ML VIAL SC SCH ×3 (08:33→20:32)
[2021-01-12] MEDS: Pantoprazole 40 MG VIAL IVP SCH ×2 (08:34→20:32)
[2021-01-12] MEDS: Polyethylene Glycol 3350 17 GM Packet PER TUBE SCH (08:35)
[2021-01-12] MEDS: Thiamine 100 MG TAB PO SCH (08:36)
[2021-01-12] MEDS: Zinc Sulfate 220 MG CAP PO SCH (08:37)
[2021-01-12 16:03] LABS: Actual Bicarbonate (HCO3a) 26.3 mEq/L (22-28); Base Excess (BEa) 0.4 mEq/L (-2.0 to +3.0); CO2 Tension 47.5 mmHg (35.0-45.0); Calcium, Ionized (arterial) 1.19 mmol/L (1.12-1.30); Carboxyhemoglobin (COHb) 0.9 gm% (0.0-3.0); Hemoglobin (Hb) 12.4 g/dL (14.0-18.0); O2 Tension (PaO2), arterial 58.2 mmHg (80.0-100.0); Potassium - ABG Lab 4.2 mmol/L (3.70-5.30); Puncture Site RRA; pH, Arterial 7.36 (7.35-7.45)
[2021-01-12 16:06] LABS: ALV-art Gradient 167.625 mmHg (0-20)
[2021-01-13] MEDS: Sevelamer Carbonate 800 MG TAB PER TUBE SCH ×3 (03:31→18:05)
[2021-01-13] MEDS: oxyCODONE 5 MG TAB PO SCH ×3 (04:20→20:31)
[2021-01-13 04:25] LABS: #Basophils 0.1 10x3/uL (0.0-0.2); #Eosinphils 0.8 10x3/uL (0.0-0.5); #Monocytes 1.1 10x3/uL (0.0-1.1); #Neutrophils 6.4 10x3/uL (1.5-8.4); %Basophils 1.2 % (0.0-2.0); %Eosinophils 8.3 % (0.0-6.0); %Lymphocytes 12.3 % (18.0-47.0); %Monocytes 11.7 % (0.0-10.0); %Neutrophils 65.6 % (40.0-75.0); Mean Corpuscular HGB CONC 32.3 g/dL (32.0-36.0); Mean Corpuscular Hemoglobin 29.4 pg (27.0-33.0); Mean Corpuscular Volume 91.2 fl (81.2-95.1); Platelet Count 218 10x3/uL (150-450); RBC Distribution Width 16.1 % (11.5-14.5); Red Blood Cell (RBC) Count 3.74 10x6/uL (4.32-5.72); White Blood Cell (WBC) Count 9.7 10x3/uL (3.5-10.5)
[2021-01-13 04:37] LABS: ALT (SGPT) 13 U/L (8-55); AST (SGOT) 15 U/L (5-34); Albumin 3.8 g/dL (3.5-5.0); Alkaline Phosphatase 81 U/L (40-110); Anion Gap 19 mmol/L (10-20); BUN (Urea Nitrogen) 62 mg/dL (8.4-25.7); Bilirubin, Total 0.5 mg/dL (0.2-1.2); Calc. Creatinine Clearance 31 mL/min (70-130); Calcium 9.9 mg/dL (7.8-10.44); Carbon Dioxide 28 mmol/L (22-29); Chloride 94 mmol/L (98-107); Globulin 3.5 g/dL (2.4-3.5); Glucose 118 mg/dL (70-105); Potassium 3.7 mmol/L (3.5-5.1); Protein, Total 7.3 g/dL (6.0-8.3); Sodium 137 mmol/L (136-145)
[2021-01-13] MEDS: Metoclopramide HCl 10 MG/2 ML VIAL IVP SCH ×3 (05:26→21:30)
[2021-01-13] MEDS: clonazePAM 1 MG TAB PO SCH (05:26)
[2021-01-13] MEDS: Budesonide 0.5 MG/2 ML NEB NEB SCH ×2 (07:27→19:19)
[2021-01-13] MEDS: Thiamine 100 MG TAB PO SCH (08:48)
[2021-01-13] MEDS: Pantoprazole 40 MG VIAL IVP SCH ×2 (08:49→20:32)
[2021-01-13] MEDS: Heparin 5,000 UNITS/ML VIAL SC SCH ×3 (08:49→20:31)
[2021-01-13] MEDS: Dexamethasone 4 mg/ml Vial SLOW IVP SCH (08:50)
[2021-01-13] MEDS: Polyethylene Glycol 3350 17 GM Packet PER TUBE SCH (08:51)
[2021-01-13] MEDS: Ascorbic Acid 500 mg Chewable Tablet PO SCH (08:51)
[2021-01-13] MEDS: Zinc Sulfate 220 MG CAP PO SCH (08:53)
[2021-01-13 11:38] LABS: Hep B Surf Ag Non-Reactive S/CO (NonReactive)
[2021-01-13 11:48] LABS: HBSAg Index 0.18 S/CO (0-0.99)
[2021-01-13] MEDS: clonazePAM 1 MG TAB PO PRN (13:58)
[2021-01-14] MEDS: Sevelamer Carbonate 800 MG TAB PER TUBE SCH ×3 (02:24→17:28)
[2021-01-14 04:56] LABS: #Basophils 0.1 10x3/uL (0.0-0.2); #Eosinphils 1.2 10x3/uL (0.0-0.5); #Monocytes 1.8 10x3/uL (0.0-1.1); #Neutrophils 14.3 10x3/uL (1.5-8.4); %Basophils 0.7 % (0.0-2.0); %Eosinophils 5.8 % (0.0-6.0); %Lymphocytes 12.6 % (18.0-47.0); %Neutrophils 70.8 % (40.0-75.0); Hemoglobin 11.6 g/dL (13.5-17.5); Mean Corpuscular HGB CONC 31.8 g/dL (32.0-36.0); Mean Corpuscular Hemoglobin 29.3 pg (27.0-33.0); Mean Corpuscular Volume 92.2 fl (81.2-95.1); Mean Platelet Volume 10.2 fl (7.4-10.4); Platelet Count 257 10x3/uL (150-450); RBC Distribution Width 15.8 % (11.5-14.5); Red Blood Cell (RBC) Count 3.96 10x6/uL (4.32-5.72); White Blood Cell (WBC) Count 20.2 10x3/uL (3.5-10.5)
[2021-01-14 05:12] LABS: ALT (SGPT) 16 U/L (8-55); AST (SGOT) 25 U/L (5-34); Alkaline Phosphatase 85 U/L (40-110); Anion Gap 17 mmol/L (10-20); BUN (Urea Nitrogen) 37 mg/dL (8.4-25.7); Bilirubin, Total 0.5 mg/dL (0.2-1.2); Calc. Creatinine Clearance 45 mL/min (70-130); Calcium 10.1 mg/dL (7.8-10.44); Carbon Dioxide 27 mmol/L (22-29); Chloride 94 mmol/L (98-107); Globulin 3.9 g/dL (2.4-3.5); Glucose 111 mg/dL (70-105); Potassium 3.9 mmol/L (3.5-5.1); Protein, Total 7.9 g/dL (6.0-8.3); Sodium 134 mmol/L (136-145)
[2021-01-14] MEDS: Metoclopramide HCl 10 MG/2 ML VIAL IVP SCH ×3 (05:12→21:39)
[2021-01-14] MEDS: Budesonide 0.5 MG/2 ML NEB NEB SCH ×2 (07:28→19:04)
[2021-01-14] MEDS: Zinc Sulfate 220 MG CAP PO SCH (08:26)
[2021-01-14] MEDS: oxyCODONE 5 MG TAB PO SCH ×2 (08:27→21:38)
[2021-01-14] MEDS: Ascorbic Acid 500 mg Chewable Tablet PO SCH (08:27)
[2021-01-14] MEDS: Heparin 5,000 UNITS/ML VIAL SC SCH ×3 (08:27→21:37)
[2021-01-14] MEDS: Dexamethasone 4 mg/ml Vial SLOW IVP SCH (08:29)
[2021-01-14] MEDS: Thiamine 100 MG TAB PO SCH (08:29)
[2021-01-14] MEDS: Pantoprazole 40 MG VIAL IVP SCH ×2 (08:29→21:38)
[2021-01-14] MEDS: Polyethylene Glycol 3350 17 GM Packet PER TUBE SCH (08:30)
[2021-01-14] MEDS: clonazePAM 1 MG TAB PO PRN ×2 (08:34→21:40)
[2021-01-14] MEDS ORDERED: Bisacodyl 10 MG SUPP PR SCH (09:00)
[2021-01-14] MEDS: Scopolamine 1.5 mg/72 hour Patch TD SCH (16:02)
[2021-01-14] MEDS ORDERED: Lorazepam 2 MG/ML VIAL ONE (18:02)
[2021-01-14] MEDS ORDERED: Lorazepam 2 MG/ML VIAL SLOW IVP SCH (18:15)
[2021-01-15] MEDS: Sevelamer Carbonate 800 MG TAB PER TUBE SCH ×3 (03:08→17:50)
[2021-01-15 05:07] LABS: #Basophils 0.1 10x3/uL (0.0-0.2); #Eosinphils 0.9 10x3/uL (0.0-0.5); #Monocytes 1.2 10x3/uL (0.0-1.1); %Eosinophils 8.3 % (0.0-6.0); %Lymphocytes 14.4 % (18.0-47.0); %Monocytes 11.1 % (0.0-10.0); %Neutrophils 63.5 % (40.0-75.0); Hemoglobin 10.8 g/dL (13.5-17.5); Mean Corpuscular HGB CONC 31.6 g/dL (32.0-36.0); Mean Corpuscular Hemoglobin 29.6 pg (27.0-33.0); Mean Corpuscular Volume 93.7 fl (81.2-95.1); Mean Platelet Volume 10.9 fl (7.4-10.4); Platelet Count 220 10x3/uL (150-450); Red Blood Cell (RBC) Count 3.65 10x6/uL (4.32-5.72)
[2021-01-15 05:14] LABS: ALT (SGPT) 15 U/L (8-55); AST (SGOT) 20 U/L (5-34); Albumin 3.7 g/dL (3.5-5.0); Alkaline Phosphatase 73 U/L (40-110); Anion Gap 19 mmol/L (10-20); BUN (Urea Nitrogen) 54 mg/dL (8.4-25.7); Bilirubin, Total 0.4 mg/dL (0.2-1.2); Calc. Creatinine Clearance 36 mL/min (70-130); Calcium 10.2 mg/dL (7.8-10.44); Carbon Dioxide 27 mmol/L (22-29); Chloride 95 mmol/L (98-107); Globulin 3.6 g/dL (2.4-3.5); Glucose 101 mg/dL (70-105); Potassium 4.2 mmol/L (3.5-5.1); Protein, Total 7.3 g/dL (6.0-8.3); Sodium 137 mmol/L (136-145)
[2021-01-15] MEDS: Metoclopramide HCl 10 MG/2 ML VIAL IVP SCH ×3 (05:30→21:12)
[2021-01-15] MEDS: Budesonide 0.5 MG/2 ML NEB NEB SCH ×2 (07:07→19:07)
[2021-01-15] MEDS: Ascorbic Acid 500 mg Chewable Tablet PO SCH (08:47)
[2021-01-15] MEDS: Dexamethasone 4 mg/ml Vial SLOW IVP SCH (08:47)
[2021-01-15] MEDS: Pantoprazole 40 MG VIAL IVP SCH ×2 (08:48→20:28)
[2021-01-15] MEDS: oxyCODONE 5 MG TAB PO SCH ×2 (08:48→20:27)
[2021-01-15] MEDS: Heparin 5,000 UNITS/ML VIAL SC SCH ×3 (08:48→20:27)
[2021-01-15] MEDS: Polyethylene Glycol 3350 17 GM Packet PER TUBE SCH (08:48)
[2021-01-15] MEDS: Zinc Sulfate 220 MG CAP PO SCH (08:49)
[2021-01-15] MEDS: Thiamine 100 MG TAB PO SCH (08:49)
[2021-01-16] MEDS: Sevelamer Carbonate 800 MG TAB PER TUBE SCH ×3 (03:20→18:06)
[2021-01-16 03:59] LABS: Actual Bicarbonate (HCO3a) 29.2 mEq/L (22-28); Base Excess (BEa) 4.3 mEq/L (-2.0 to +3.0); CO2 Tension 44.8 mmHg (35.0-45.0); Calcium, Ionized (arterial) 1.21 mmol/L (1.12-1.30); Carboxyhemoglobin (COHb) 0.7 gm% (0.0-3.0); Hemoglobin (Hb) 11.9 g/dL (14.0-18.0); O2 Tension (PaO2), arterial 79.6 mmHg (80.0-100.0); Potassium - ABG Lab 3.1 mmol/L (3.70-5.30); Puncture Site RRA; pH, Arterial 7.43 (7.35-7.45)
[2021-01-16 05:00] LABS: #Basophils 0.1 10x3/uL (0.0-0.2); #Eosinphils 1.3 10x3/uL (0.0-0.5); #Monocytes 1.3 10x3/uL (0.0-1.1); #Neutrophils 6.8 10x3/uL (1.5-8.4); %Basophils 0.8 % (0.0-2.0); %Eosinophils 11.4 % (0.0-6.0); %Lymphocytes 14.4 % (18.0-47.0); %Monocytes 11.7 % (0.0-10.0); %Neutrophils 60.3 % (40.0-75.0); Hemoglobin 11.2 g/dL (13.5-17.5); Mean Corpuscular HGB CONC 31.5 g/dL (32.0-36.0); Mean Corpuscular Hemoglobin 29.2 pg (27.0-33.0); Mean Corpuscular Volume 92.4 fl (81.2-95.1); Mean Platelet Volume 10.4 fl (7.4-10.4); Platelet Count 234 10x3/uL (150-450); RBC Distribution Width 16.2 % (11.5-14.5); Red Blood Cell (RBC) Count 3.84 10x6/uL (4.32-5.72); White Blood Cell (WBC) Count 11.3 10x3/uL (3.5-10.5)
[2021-01-16 05:14] LABS: ALT (SGPT) 18 U/L (8-55); AST (SGOT) 20 U/L (5-34); Albumin 3.9 g/dL (3.5-5.0); Alkaline Phosphatase 77 U/L (40-110); Anion Gap 17 mmol/L (10-20); BUN (Urea Nitrogen) 29 mg/dL (8.4-25.7); Bilirubin, Total 0.4 mg/dL (0.2-1.2); Calc. Creatinine Clearance 60 mL/min (70-130); Calcium 9.9 mg/dL (7.8-10.44); Carbon Dioxide 30 mmol/L (22-29); Chloride 93 mmol/L (98-107); Globulin 3.6 g/dL (2.4-3.5); Glucose 95 mg/dL (70-105); Magnesium 2.1 mg/dL (1.6-2.6); Protein, Total 7.5 g/dL (6.0-8.3); Sodium 137 mmol/L (136-145)
[2021-01-16 05:18] LABS: Potassium 2.9 mmol/L (3.5-5.1)
[2021-01-16] MEDS ORDERED: Potassium Chloride 20 MEQ TAB PER TUBE SCH ×2 (05:45→09:00)
[2021-01-16] MEDS: Metoclopramide HCl 10 MG/2 ML VIAL IVP SCH ×3 (06:05→19:53)
[2021-01-16] MEDS: Budesonide 0.5 MG/2 ML NEB NEB SCH ×2 (07:33→19:26)
[2021-01-16] MEDS: oxyCODONE 5 MG TAB PO SCH ×2 (07:54→19:53)
[2021-01-16] MEDS: Ascorbic Acid 500 mg Chewable Tablet PO SCH (07:54)
[2021-01-16] MEDS: Heparin 5,000 UNITS/ML VIAL SC SCH ×3 (07:54→19:54)
[2021-01-16] MEDS: Pantoprazole 40 MG VIAL IVP SCH ×2 (07:54→19:54)
[2021-01-16] MEDS: Dexamethasone 4 mg/ml Vial SLOW IVP SCH (07:54)
[2021-01-16] MEDS: Thiamine 100 MG TAB PO SCH (07:55)
[2021-01-16] MEDS: Zinc Sulfate 220 MG CAP PO SCH (07:55)
[2021-01-16] MEDS: Polyethylene Glycol 3350 17 GM Packet PER TUBE SCH (07:55)
[2021-01-16] MEDS: Lorazepam 2 MG/ML VIAL SLOW IVP PRN ×2 (18:06→23:55)
[2021-01-17] MEDS: Sevelamer Carbonate 800 MG TAB PER TUBE SCH ×2 (03:11→10:22)
[2021-01-17 04:31] LABS: #Basophils 0.2 10x3/uL (0.0-0.2); #Eosinphils 1.5 10x3/uL (0.0-0.5); #Monocytes 1.3 10x3/uL (0.0-1.1); #Neutrophils 6.3 10x3/uL (1.5-8.4); %Basophils 1.3 % (0.0-2.0); %Eosinophils 13.5 % (0.0-6.0); %Lymphocytes 15.1 % (18.0-47.0); %Monocytes 11.8 % (0.0-10.0); %Neutrophils 56.6 % (40.0-75.0); Hemoglobin 11.9 g/dL (13.5-17.5); Mean Corpuscular HGB CONC 31.6 g/dL (32.0-36.0); Mean Corpuscular Hemoglobin 29.5 pg (27.0-33.0); Mean Corpuscular Volume 93.5 fl (81.2-95.1); Mean Platelet Volume 10.1 fl (7.4-10.4); Platelet Count 243 10x3/uL (150-450); RBC Distribution Width 15.9 % (11.5-14.5); Red Blood Cell (RBC) Count 4.03 10x6/uL (4.32-5.72); White Blood Cell (WBC) Count 11.2 10x3/uL (3.5-10.5)
[2021-01-17 04:35] LABS: ALT (SGPT) 19 U/L (8-55); AST (SGOT) 24 U/L (5-34); Albumin 3.9 g/dL (3.5-5.0); Alkaline Phosphatase 80 U/L (40-110); Anion Gap 14 mmol/L (10-20); BUN (Urea Nitrogen) 45 mg/dL (8.4-25.7); Bilirubin, Total 0.4 mg/dL (0.2-1.2); Calc. Creatinine Clearance 51 mL/min (70-130); Calcium 10.2 mg/dL (7.8-10.44); Carbon Dioxide 32 mmol/L (22-29); Chloride 95 mmol/L (98-107); Globulin 3.6 g/dL (2.4-3.5); Glucose 86 mg/dL (70-105); Magnesium 2.3 mg/dL (1.6-2.6); Potassium 4.2 mmol/L (3.5-5.1); Protein, Total 7.5 g/dL (6.0-8.3); Sodium 137 mmol/L (136-145)
[2021-01-17] MEDS: Lorazepam 2 MG/ML VIAL SLOW IVP PRN (05:05)
[2021-01-17 06:08] VITALS: BMI 39.5
[2021-01-17] MEDS: Budesonide 0.5 MG/2 ML NEB NEB SCH (07:05)
[2021-01-17] MEDS: Metoclopramide HCl 10 MG/2 ML VIAL IVP SCH ×2 (07:11→14:39)
[2021-01-17] MEDS: Albuterol Sulfate 2.5 mg/3 ml Neb NEB PRN (07:15)
[2021-01-17] MEDS: Pantoprazole 40 MG VIAL IVP SCH (09:21)
[2021-01-17] MEDS: Zinc Sulfate 220 MG CAP PO SCH (09:22)
[2021-01-17] MEDS: Ascorbic Acid 500 mg Chewable Tablet PO SCH (09:22)
[2021-01-17] MEDS: oxyCODONE 5 MG TAB PO SCH (09:22)
[2021-01-17] MEDS: Dexamethasone 4 mg/ml Vial SLOW IVP SCH (09:22)
[2021-01-17] MEDS: Polyethylene Glycol 3350 17 GM Packet PER TUBE SCH (09:23)
[2021-01-17] MEDS: Thiamine 100 MG TAB PO SCH (09:23)
[2021-01-17] MEDS: Heparin 5,000 UNITS/ML VIAL SC SCH ×2 (09:26→14:40)
[2021-01-17 16:00] VITALS: TEMP 98
[2021-01-17 16:09] VITALS: BP 121/80
[2021-01-17] MEDS: Scopolamine 1.5 mg/72 hour Patch TD SCH (17:36)
[2021-01-24] MEDS ORDERED: EPOETIN ALFA-EPBX (ESRD) 3,000 UNIT/ML VIAL SC SCH (12:00)
== END 2021-01-17 17:20 | DRG 4 ==
LOC: CSHERS 02:00 → CSHICU 13:44
PROVIDERS: ADMIT Internal Medicine; ATTEND Internal Medicine
PROC: 5A09457 Assistance with Respiratory Ventilation, 24-96 Consecutive Hours, Continuous Positive Airway Pressure (ICD-10-PCS; principal; 2020-11-30)
PROC: 8E0ZXY6 Isolation (ICD-10-PCS; 2020-11-30)
PROC: 5A1955Z Respiratory Ventilation, Greater than 96 Consecutive Hours (ICD-10-PCS; 2020-12-12)
PROC: 3E033XZ Introduction of Vasopressor into Peripheral Vein, Percutaneous Approach (ICD-10-PCS; 2020-12-12)
PROC: 0BH17EZ Insertion of Endotracheal Airway into Trachea, Via Natural or Artificial Opening (ICD-10-PCS; 2020-12-12)
PROC: 02HV33Z Insertion of Infusion Device into Superior Vena Cava, Percutaneous Approach (ICD-10-PCS; 2020-12-12)
PROC: B548ZZA Ultrasonography of Superior Vena Cava, Guidance (ICD-10-PCS; 2020-12-12)
PROC: 03JY3ZZ Inspection of Upper Artery, Percutaneous Approach (ICD-10-PCS; 2020-12-12)
PROC: 06HY33Z Insertion of Infusion Device into Lower Vein, Percutaneous Approach (ICD-10-PCS; 2020-12-18)
PROC: 5A1D70Z Performance of Urinary Filtration, Intermittent, Less than 6 Hours Per Day (ICD-10-PCS; 2020-12-19)
PROC: 3E04317 Introduction of Other Thrombolytic into Central Vein, Percutaneous Approach (ICD-10-PCS; 2020-12-27)
PROC: 06HY33Z Insertion of Infusion Device into Lower Vein, Percutaneous Approach (ICD-10-PCS; 2020-12-31)
PROC: 06PYX3Z Removal of Infusion Device from Lower Vein, External Approach (ICD-10-PCS; 2020-12-31)
PROC: 0B113F4 Bypass Trachea to Cutaneous with Tracheostomy Device, Percutaneous Approach (ICD-10-PCS; 2021-01-04)
PROC: 0DH63UZ Insertion of Feeding Device into Stomach, Percutaneous Approach (ICD-10-PCS; 2021-01-04)
DX: A41.89 Other specified sepsis (principal); U07.1 COVID-19; J12.82 Pneumonia due to coronavirus disease 2019; R65.21 Severe sepsis with septic shock; J80 Acute respiratory distress syndrome; N17.0 Acute kidney failure with tubular necrosis; N18.6 End stage renal disease; Z68.41 Body mass index [BMI] 40.0-44.9, adult; I24.8 Other forms of acute ischemic heart disease; E66.2 Morbid (severe) obesity with alveolar hypoventilation; E87.0 Hyperosmolality and hypernatremia; T82.41XA Breakdown (mechanical) of vascular dialysis catheter, initial encounter; B37.49 Other urogenital candidiasis; I12.0 Hypertensive chronic kidney disease with stage 5 chronic kidney disease or end stage renal disease; E46 Unspecified protein-calorie malnutrition; E87.4 Mixed disorder of acid-base balance; D63.1 Anemia in chronic kidney disease; E83.39 Other disorders of phosphorus metabolism; I25.10 Atherosclerotic heart disease of native coronary artery without angina pectoris; R77.8 Other specified abnormalities of plasma proteins; R31.9 Hematuria, unspecified; E87.5 Hyperkalemia; E83.42 Hypomagnesemia; E86.9 Volume depletion, unspecified; K59.00 Constipation, unspecified; E87.6 Hypokalemia; Z78.1 Physical restraint status; Z95.5 Presence of coronary angioplasty implant and graft; Z71.3 Dietary counseling and surveillance; I25.2 Old myocardial infarction
CPT/HCPCS: 36415; 36416; 36600; 71045; 80048; 80053; 80069; 80076; 80202; 81001; 82550; 82553; 82570; 82728; 82805; 83540; 83550; 83605; 83615; 83735; 83880; 84145; 84156; 84300; 84443; 84484; 84540; 85025; 85027; 85049; 85300; 85362; 85379; 85384; 85610; 85730; 86140; 86704; 86706; 86803; 87040; 87070; 87086; 87205; 87340; 90935; 93005; 93010; 94002; 94003; 94640; 94660; 94664; 94760; 96374; 96375; C1752; C9113; G0257; J0171; J0456; J0610; J0690; J0692; J0696; J1100; J1450; J1642; J1644; J1650; J1815; J1940; J2060; J2248; J2270; J2405; J2543; J2704; J2765; J2916; J2997; J3010; J3370; J3490; J7050; J7611; J7626; P9047; Q5105; S0020; S0028; U0002